=== PATIENT | female | born 1960 | race African-American/Black ===

== ENCOUNTER 2020-02-27 13:45 | Inpatient (IN) | payer OTHER ==
--- NOTE | 2020-02-27 13:51 | BHS.RME ---
Substance Use & Tx History - Substance Use History Alcohol Substance amount: 1 pint rum Frequency of use: Daily Substance route: Oral Date of Last Use: 02/26/20 (started age 10) Nicotine Substance amount: 1 pack Frequency of use: Daily Substance route: Smoking Date of Last Use: 02/27/20 (started age 17) CIWA Nausea/Vomitin-Mild Nausea/No Vomiting Muscle Tremors: 2 Anxiety: 4-Mod. Anxious/Guarded Agitation: 4-Moderately Restless Paroxysmal Sweats: 1-Minimal Palms Moist Orientation: 0-Oriented Tacttile Disturbances: 0-None Auditory Disturbances: 0-None Visual Disturbances: 0-None Headache: 0-None Present CIWA-Ar Total Score: 12
--- NOTE | 2020-02-27 15:20 | HP ---
CIWA Score Nausea/Vomitin-Mild Nausea/No Vomiting Muscle Tremors: 2 Anxiety: 4-Mod. Anxious/Guarded Agitation: 4-Moderately Restless Paroxysmal Sweats: 1-Minimal Palms Moist Orientation: 0-Oriented Tacttile Disturbances: 0-None Auditory Disturbances: 0-None Visual Disturbances: 0-None Headache: 0-None Present CIWA-Ar Total Score: 12 - Admission Criteria [facility]ASAS Guidelines: Admission for Medically Managed Detox: Requires at least one of the followin. CIWA greater than 12 2. Seizures within the past 24 hours 3. Delirium tremens within the past 24 hours 4. Hallucinations within the past 24 hours 5. Acute intervention needed for co occurring medical disorder 6. Acute intervention needed for co occurring psychiatric disorder 7. Severe withdrawal that cannot be handled at a lower level of care (continued vomiting, continued diarrhea, abnormal vital signs) requiring intravenous medication and/or fluids 8. Admitting History and Physical - Admission Chief Complaint: Ms. Salazar is a 59 yo woman who presents to [facility] requesting admission to detox for alcohol use disorder. History of Present Illness: Ms. Salazar is a 59 yo woman who presents to [facility] requesting admission to detox for alcohol use disorder. This is her first visit to [facility]. PMH: Asthma, COPD, HIV, h/o thrombophlebitis on Plavix, arthritis, HTN, HLD, CVA 2016 PSH: bilateral arms Psych: h/o depression , no meds, SA at age 51, no current SI SOC: lives in her own apartment Legal: none Substance Use History Alcohol Substance amount: 1 pint rum Frequency of use: Daily Substance route: Oral Date of Last Use: 02/26/20 (started age 10) No hx of seizures or blackouts Admits to [facility] [employer] [facility] [employer] Nicotine Substance amount: 1 pack Frequency of use: Daily Substance route: Smoking Date of Last Use: 02/27/20 (started age 17) History Source: Patient Limitations to Obtaining History: No Limitations Admission ROS [facility] Allergies/Adverse Reactions: Allergies Allergy/AdvReac Type Severity Reaction Status Date / Time aspirin Allergy Verified 02/27/20 15:23 ibuprofen AdvReac Nausea Verified 02/27/20 15:25 Exam Limitations: No Limitations - Ebola screening Have you traveled outside of the country in the last 21 days: No Have you been sick,other than usual withdrawal symptoms: No Do you have a fever: No - Review of Systems Constitutional: No Symptoms Reported EENT: reports: No Symptoms Reported Respiratory: reports: SOB with Exertion Cardiac: reports: No Symptoms Reported GI: reports: Nausea : reports: No Symptoms Reported Musculoskeletal: reports: No Symptoms Reported Integumentary: reports: Rash (recent, under breasts, treated with cortisone cream, now resolved) Neuro: reports: Headache (hx of migraine, hx of stroke when using cocaine 2017, leg and bilateral arm weakness, no residual sx) Endocrine: reports: No Symptoms Reported Hematology: reports: Blood Clots Psychiatric: reports: Depressed Patient History - Smoking Cessation Smoking history: Current every day smoker Have you smoked in the past 12 months: Yes Aproximately how many cigarettes per day: 20 Hx Chewing Tobacco Use: No Initiated information on smoking cessation: Yes 'Breaking Loose' booklet given: 02/27/20 Admission Physical Exam [facility] - Vital Signs Vital Signs: 145/106, 69, 12, 95.1, sat 98% UDS: BEBE - Physical General Appearance: Yes: No Apparent Distress, Nourished, Appropriately Dressed HEENTM: Yes: EOMI, Hearing grossly Normal, Normocephalic, Normal Voice Respiratory: Yes: Lungs Clear, Normal Breath Sounds, No Respiratory Distress, No Accessory Muscle Use Neck: Yes: Within Normal Limits, Supple Breast: Yes: Within Normal Limits Cardiology: Yes: Regular Rhythm, Regular Rate Abdominal: Yes: Non Tender, Soft, Decreased BS, Protuberent Genitourinary: Yes: Other (deferred) Back: Yes: Normal Inspection Musculoskeletal: Yes: Gait Steady Extremities: Yes: Non-Tender, Other (hx of surgery dorsal and ventral forearm, left ventral forearm, hx of right arm trauma and left arm DVT) Neurological: Yes: Alert, Normal Response Integumentary: Yes: Within Normal Limits, Normal Color, Dry, Warm - Diagnostic (1) Alcohol abuse with withdrawal, uncomplicated Current Visit: Yes Status: Acute (2) Cocaine dependence Current Visit: Yes Status: Acute Qualifiers: Substance use status: uncomplicated Qualified Code(s): F14.20 - Cocaine dependence, uncomplicated (3) Nicotine dependence Current Visit: Yes Status: Acute Qualifiers: Nicotine product type: cigarettes Substance use status: uncomplicated Qualified Code(s): F17.210 - Nicotine dependence, cigarettes, uncomplicated (4) Asthma Current Visit: Yes Status: Chronic (5) COPD (chronic obstructive pulmonary disease) Current Visit: Yes Status: Chronic (6) HIV (human immunodeficiency virus infection) Current Visit: Yes Status: Chronic (7) DVT (deep venous thrombosis) Current Visit: Yes Status: Chronic (8) Arthritis Current Visit: Yes Status: Chronic (9) HTN (hypertension) Current Visit: Yes Status: Chronic (10) HLD (hyperlipidemia) Current Visit: Yes Status: Chronic (11) Depression Current Visit: Yes Status: Chronic Cleared for Admission S - Detox or Rehab [facility] Level of Care: Medically Managed Detox Regimen/Protocol: Lib[facility] Inpatient Rehab Admission - Rehab Decision to Admit Inpatient rehab admission?: No
[2020-02-27] MEDS ORDERED: MAGNESIUM CITRATE 300 ML BOTTLE PO PRN (15:25)
[2020-02-27] MEDS ORDERED: MENTHOL/PHENOL 1 EACH UD MM PRN (15:25)
[2020-02-27] MEDS ORDERED: MAGNESIUM HYDROX 2400MG/30ML ORAL SUSPENSION 30 ML CUP PO PRN (15:25)
[2020-02-27] MEDS ORDERED: ACETAMINOPHEN 325 MG TABLET (FP) PO PRN (15:25)
[2020-02-27] MEDS ORDERED: NICOTINE POLACRILEX 2 MG GUM BUC PRN (15:25)
[2020-02-27] MEDS ORDERED: IBUPROFEN 400 MG TABLET (FP) PO PRN (15:25)
[2020-02-27] MEDS ORDERED: ONDANSETRON *ODT* 4 MG TABLET SL PRN (15:25)
[2020-02-27] MEDS ORDERED: BISMUTH SUBSALICYLATE 524 MG/30 ML UD PO PRN (15:25)
--- OUTSIDE RECORDS SUMMARY | 2020-02-27 15:45 | XMS ---
:1960 Author Organization [facility] Support Name Relationship Address Phone UE Unavailable Unavailable Unavailable MARLA HOYT [employer]NER [address] [address] denys gaines Unavailable Unavailable Unavailable Re-disclosure Warning The records that you are about to access may contain information from federally- assisted alcohol or drug abuse programs. If such information is present, then the following federally mandated warning applies: This information has been disclosed to you from records protected by federal confidentiality rules (42 CFR part 2). The federal rules prohibit you from making any further disclosure of this information unless further disclosure is expressly permitted by the written consent of the person to whom it pertains or as otherwise permitted by 42 CFR part 2. A general authorization for the release of medical or other information is NOT sufficient for this purpose. The Federal rules restrict any use of the information to criminally investigate or prosecute any alcohol or drug abuse patient.The records that you are about to access may contain highly sensitive health information, the redisclosure of which is protected by Article 27-F of the [facility] Public Health law. If you continue you may haveaccess to information: Regarding HIV / AIDS; Provided by facilities licensed or operated by the [facility] Office of Mental Health; or Provided by the [facility] Office for People With Developmental Disabilities. If such information is present, then the following [facility] mandated warning applies: This information has been disclosed to you from confidential records which are protected by state law. State law prohibits you from making any further disclosure of this information without the specific written consent of the person to whom it pertains, or as otherwise permitted by law. Any unauthorized further disclosure in violation of state law may result in a fine or usp sentence or both. A general authorization for the release of medical or other information is NOT sufficient authorization for further disclosure. Encounters Encounter Providers Location Date Indications Data Source(s ) Outpatient [facility] 02/25/2019 eCW3 ([facility] 12:00:00 AM Health Care) EDT - 02/25/2019 12:00:00 AM EDT Outpatient [facility] 01/28/2019 eCW3 ([facility]28 12:00:00 AM Health Care) EDT - 01/28/2019 12:00:00 AM EDT Medications Medication Brand Start Product Dose Route Administrative Pharmacy [facility] Indications Reaction Description Data Name Date Form Instructions Instructions Source(s) Biktarvy Biktar .0 active Biktarvy e CW3 50-200-25 vy 2020 {tabl 50-200-25 MG ( [place] MG 50-200 12:00: et} [place] -25 MG 00 AM Health EDT Care) Indomethaci Indome .0 active Indomet hacin eCW3 n 25 MG thacin 2019 {caps 25 MG ([place] Oral 25 MG 12:00: ule_w [place] Capsule 00 AM ith_f Health EDT ood_o Care) r_mil k} Zithromax Zithro .0 active Zithromax eCW3 Tri-Zackary 500 max 2020 {tabl Tri-Zackary 500 ([place] MG Tri-Pa 12:00: et} MG [place] k 500 00 AM Health MG EDT Care) Zithromax Zithro .0 active Zithromax eCW3 Tri-Zackary 500 max 2020 {tabl Tri-Zackary 500 ([place] MG Tri-Pa 12:00: et} MG [place] k 500 00 AM Health MG EDT Care) Zithromax Zithro .0 active Zithromax eCW3 Tri-Zackary 500 max 2020 {tabl Tri-Zackary 500 ([place] MG Tri-Pa 12:00: et} MG [place] k 500 00 AM Health MG EDT Care) Zithromax Zithro .0 active Zithromax eCW3 Tri-Zackary 500 max 2020 {tabl Tri-Zackary 500 ([place] MG Tri-Pa 12:00: et} MG [place] k 500 00 AM Health MG EDT Care) Biktarvy Biktar .0 active Biktarvy e CW3 50-200-25 vy 2020 {tabl 50-200-25 MG ( [place] MG 50-200 12:00: et} [place] -25 MG 00 AM Health EDT Care) Biktarvy Biktar .0 active Biktarvy e CW3 50-200-25 vy 2020 {tabl 50-200-25 MG ( [place] MG 50-200 12:00: et} [place] -25 MG 00 AM Health EDT Care) Syringe UNK 0530/ active Syringe eCW3 (Disposable 2020 (Disposable) ([place] ) 1 ML 12:00: 1 ML [facility] 00 AM Health EDT Care) Syringe UNK 0530/ active Syringe eCW3 (Disposable 2020 (Disposable) ([place] ) 1 ML 12:00: 1 ML [place] 00 AM Health EDT Care) Syringe UNK 0530/ active Syringe eCW3 (Disposable 2020 (Disposable) ([place] ) 1 ML 12:00: 1 ML [place] 00 AM Health EDT Care) Syringe UNK 0530/ active Syringe eCW3 (Disposable 2020 (Disposable) ([place] ) 1 ML 12:00: 1 ML [place] 00 AM Health EDT Care) Biktarvy Biktar .0 active Biktarvy e CW3 50-200-25 vy 2020 {tabl 50-200-25 MG ( [place] MG 50-200 12:00: et} [place] -25 MG 00 AM Health EDT Care) Biktarvy Biktar .0 active Biktarvy e CW3 50-200-25 vy 2020 {tabl 50-200-25 MG ( [place] MG 50-200 12:00: et} [place] -25 MG 00 AM Health EDT Care) Biktarvy Biktar .0 active Biktarvy e CW3 50-200-25 vy 2020 {tabl 50-200-25 MG ( [place] MG 50-200 12:00: et} [place] -25 MG 00 AM Health EDT Care) Biktarvy Biktar .0 active Biktarvy e CW3 50-200-25 vy 2020 {tabl 50-200-25 MG ( [place] MG 50-200 12:00: et} [place] -25 MG 00 AM Health EDT Care) Clotrimazol Clotri .0 active Clotrim azole eCW3 e - mazole 2020 {appl - ([place] - 12:00: icati [place] 00 AM on_at Health EDT _bedt Care) denisse} Clotrimazol Clotri .0 active Clotrim azole eCW3 e - mazole 2020 {appl - ([place] - 12:00: icati [place] 00 AM on_at Health EDT _bedt Care) denisse} Ketoconazol Ketoco .0 active Ketocon azole eCW3 e 20 MG/ML nazole 2020 {appl 2 % ([place] Topical 2 % 12:00: icati [place] Cream 00 AM on} Health Ketoconazol EDT Care) e 2 % Clotrimazol Clotri .0 active Clotrim azole eCW3 e 10 MG/ML mazole 2020 {appl 1 % ([place] [facility] Topical 1 % 12:00: icati [place] Solution 00 AM on} Health Clotrimazol EDT Care) e 1 % Clotrimazol Clotri .0 active Clotrim azole eCW3 e 10 MG/ML mazole 2020 {appl 1 % ([place] [facility] Topical 1 % 12:00: icati [place] Solution 00 AM on} Health Clotrimazol EDT Care) e 1 % Ketoconazol Ketoco .0 active Ketocon azole eCW3 e 20 MG/ML nazole 2020 {appl 2 % ([place] Topical 2 % 12:00: icati [place] Cream 00 AM on} Health Ketoconazol EDT Care) e 2 % Ketoconazol Ketoco .0 active Ketocon azole eCW3 e 20 MG/ML nazole 2020 {appl 2 % ([place] Topical 2 % 12:00: icati [place] Cream 00 AM on} Health Ketoconazol EDT Care) e 2 % Clotrimazol Clotri .0 active Clotrim azole eCW3 e 10 MG/ML mazole 2020 {appl 1 % ([place] Topical 1 % 12:00: icati [place] Solution 00 AM on} Health Clotrimazol EDT Care) e 1 % Clotrimazol Clotri .0 active Clotrim azole eCW3 e 10 MG/ML mazole 2020 {appl 1 % ([place] Topical 1 % 12:00: icati [place] Solution 00 AM on} Health Clotrimazol EDT Care) e 1 % Ketoconazol Ketoco .0 active Ketocon azole eCW3 e 20 MG/ML nazole 2020 {appl 2 % ([place] [facility] Topical 2 % 12:00: icati [place] Cream 00 AM on} Health Ketoconazol EDT Care) e 2 % Clotrimazol Clotri .0 active Clotrim azole eCW3 e - mazole 2020 {appl - ([place] - 12:00: icati [place] 00 AM on_at Health EDT _bedt Care) denisse} Clotrimazol Clotri .0 active Clotrim azole eCW3 e 10 MG/ML mazole 2020 {appl 1 % ([place] Topical 1 % 12:00: icati [place] Solution 00 AM on} Health Clotrimazol EDT Care) e 1 % Ketoconazol Ketoco .0 active Ketocon azole eCW3 e 20 MG/ML nazole 2020 {appl 2 % ([place] Topical 2 % 12:00: icati [place] Cream 00 AM on} Health Ketoconazol EDT Care) e 2 % Clotrimazol Clotri .0 active Clotrim azole eCW3 e - mazole 2020 {appl - ([place] - 12:00: icati [place] 00 AM on_at Health EDT _bedt Care) denisse} Clotrimazol Clotri .0 active Clotrim azole eCW3 e - mazole 2020 {appl - ([place] - 12:00: icati [place] 00 AM on_at Health EDT _bedt Care) denisse} quetiapine Seroqu .0 active Seroquel 25 eCW3 25 MG Oral el 25 2020 {tabl MG ([place] Tablet MG 12:00: et_at [place] [Seroquel] 00 AM _bedt Health Seroquel 25 EDT denisse} Care) MG quetiapine Seroqu .0 active Seroquel 25 eCW3 25 MG Oral el 2019 {tabl MG ([place] Tablet MG 12:00: et_at [place] [Seroquel] 00 AM _bedt Health Seroquel 25 EDT denisse} Care) MG quetiapine Seroqu .0 active Seroquel 25 eCW3 25 MG Oral el 2019 {tabl MG ([place] Tablet MG 12:00: et_at [place] [Seroquel] 00 AM _bedt Health Seroquel 25 EDT denisse} Care) MG quetiapine Seroqu .0 active Seroquel 25 eCW3 25 MG Oral el 2019 {tabl MG ([place] Tablet MG 12:00: et_at [place] [Seroquel] 00 AM _bedt Health Seroquel 25 EDT denisse} Care) MG quetiapine Seroqu .0 active Seroquel 25 eCW3 25 MG Oral el 2019 {tabl MG ([place] Tablet MG 12:00: et_at [place] [Seroquel] 00 AM _bedt Health Seroquel 25 EDT denisse} Care) MG quetiapine Seroqu .0 active Seroquel 25 eCW3 25 MG Oral el 2019 {tabl MG ([place] Tablet MG 12:00: et_at [place] [Seroquel] 00 AM _bedt Health Seroquel 25 EDT denisse} Care) MG Biktarvy Biktar .0 active Leonor araujo CW3 50-200-25 vy 2019 {tabl 50-200-25 MG ( [place] MG 50-200 12:00: et} [place] -25 MG 00 AM Health EDT Care) Biktarvy Biktar .0 active Garlandktgrey araujo CW3 50-200-25 vy 2019 {tabl 50-200-25 MG ( [place] MG 50-200 12:00: et} [place] -25 MG 00 AM Health EDT Care) Biktarvy Biktar .0 active Biktarvy e CW3 50-200-25 vy 2020 {tabl 50-200-25 MG ( [place] MG 50-200 12:00: et} [place] -25 MG 00 AM Health EDT Care) Biktarvy Biktar .0 active Biktarvy e CW3 50-200-25 vy 2020 {tabl 50-200-25 MG ( [place] MG 50-200 12:00: et} [place] -25 MG 00 AM Health EDT Care) Biktarvy Biktar .0 active Biktarvy e CW3 50-200-25 vy 2020 {tabl 50-200-25 MG ( [place] MG 50-200 12:00: et} [place] -25 MG 00 AM Health EDT Care) Biktarvy Biktar .0 active Biktarvy e CW3 50-200-25 vy 2020 {tabl 50-200-25 MG ( [place] MG 50-200 12:00: et} [place] -25 MG 00 AM Health EDT Care) Biktarvy Biktar .0 active Biktarvy e CW3 50-200-25 vy 2020 {tabl 50-200-25 MG ( [place] MG 50-200 12:00: et} [place] -25 MG 00 AM Health EDT Care) Biktarvy Biktar .0 active Biktarvy e CW3 50-200-25 vy 2020 {tabl 50-200-25 MG ( [place] MG 50-200 12:00: et} [place] -25 MG 00 AM Health EDT Care) Biktarvy Biktar .0 active Biktarvy e CW3 50-200-25 vy 2020 {tabl 50-200-25 MG ( [place] MG 50-200 12:00: et} [place] -25 MG 00 AM Health EDT Care) Biktarvy Biktar 03/18/ 1.0 active Biktarvy e CW3 50-200-25 vy 2020 {tabl 50-200-25 MG ( [place] MG 50-200 12:00: et} [place] -25 MG 00 AM Health EDT Care) Vitamin B Cyanoc .0 active Cyanocoba cortez eCW3 12 1 MG/ML obalam 2019 {ml} in 1000 ([facility] Injectable in 12:00: MCG/ML [place] Solution 1000 00 AM Health Cyanocobala MCG/ML EST Care) min 1000 MCG/ML Diphenhydra Diphen 2.0 active Diphenh ydrAM eCW3 mine hydrAM 2018 {caps INE HCl 25 ([place] Hydrochlori INE 12:00: ule_a MG [place] de 25 MG HCl 25 00 AM t_bed Health Oral MG EST time_ Care) Capsule as_ne DiphenhydrA eded} MINE HCl 25 MG Lisinopril Lisino .0 active Lisinopr il 5 eCW3 5 MG Oral pril 5 2018 {tabl MG ([place] Tablet MG 12:00: et} [facility] 00 AM Health EST Care) Vitamin B Cyanoc .0 active Cyanocoba cortez eCW3 12 1 MG/ML obalam 2019 {ml} in 1000 ([facility] Injectable in 12:00: MCG/ML [place] Solution 1000 00 AM Health Cyanocobala MCG/ML EST Care) min 1000 MCG/ML Vitamin B Cyanoc .0 active Cyanocoba cortez eCW3 12 1 MG/ML obalam 2019 {ml} in 1000 ([place] Injectable in 12:00: MCG/ML [place] Solution 1000 00 AM Health Cyanocobala MCG/ML EST Care) min 1000 MCG/ML Vitamin B Cyanoc .0 active Cyanocoba cortez eCW3 12 1 MG/ML obalam 2019 {ml} in 1000 ([facility] Injectable in 12:00: MCG/ML [facility] Solution 1000 00 AM Health Cyanocobala MCG/ML EST Care) min 1000 MCG/ML Lisinopril Lisino .0 active Lisinopr il 5 eCW3 5 MG Oral pril 5 2018 {tabl MG ([place] Tablet MG 12:00: et} [facility] 00 AM Health EST Care) clopidogrel Plavix .0 active Plavix 75 MG eCW3 75 MG Oral 75 MG 2019 {tabl ([place] Tablet 12:00: et} [place] [Plavix] 00 AM Health Plavix 75 EST Care) MG clopidogrel Plavix .0 active Plavix 75 MG eCW3 75 MG Oral 75 MG 2018 {tabl ([place] Tablet 12:00: et} [place] [Plavix] 00 AM Health Plavix 75 EST Care) MG Lisinopril Lisino .0 active Lisinopr il 5 eCW3 5 MG Oral pril 5 2018 {tabl MG ([place] Tablet MG 12:00: et} [place] 00 AM Health EST Care) Vitamin B Cyanoc .0 active Cyanocoba cortez eCW3 12 1 MG/ML obalam 2019 {ml} in 1000 ([facility] Injectable in 12:00: MCG/ML [facility] Solution 1000 00 AM Health Cyanocobala MCG/ML EST Care) min 1000 MCG/ML clopidogrel Plavix .0 active Plavix 75 MG eCW3 75 MG Oral 75 MG 2018 {tabl ([place] Tablet 12:00: et} [place] [Plavix] 00 AM Health Plavix 75 EST Care) MG Diphenhydra Diphen 2.0 active Diphenh ydrAM eCW3 mine hydrAM 2018 {caps INE HCl 25 ([place] Hydrochlori INE 12:00: ule_a MG [place] de 25 MG HCl 25 00 AM t_bed Health Oral MG EST time_ Care) Capsule as_ne DiphenhydrA eded} MINE HCl 25 MG Lisinopril Lisino .0 active Lisinopr il 5 eCW3 5 MG Oral pril 5 2018 {tabl MG ([place] Tablet MG 12:00: et} [place] 00 AM Health EST Care) Lisinopril Lisino .0 active Lisinopr il 5 eCW3 5 MG Oral pril 5 2018 {tabl MG ([place] Tablet MG 12:00: et} [facility] 00 AM Health EST Care) Lisinopril Lisino .0 active Lisinopr il 5 eCW3 5 MG Oral pril 5 2018 {tabl MG ([place] Tablet MG 12:00: et} [place] 00 AM Health EST Care) clopidogrel Plavix .0 active Plavix 75 MG eCW3 75 MG Oral 75 MG 2019 {tabl ([place] Tablet 12:00: et} [place] [Plavix] 00 AM Health Plavix 75 EST Care) MG Diphenhydra Diphen 2.[address] [facility] 2018 {caps INE HCl 25 ([place] Hydrochlori INE 12:00: ule_a MG [place] de 25 MG HCl 25 00 AM t_bed Health Oral MG EST time_ Care) Capsule as_ne DiphenhydrA eded} MINE HCl 25 MG clopidogrel Plavix .0 active Plavix 75 MG eCW3 75 MG Oral 75 MG 2018 {tabl ([place] Tablet 12:00: et} [place] [Plavix] 00 AM Health Plavix 75 EST Care) MG Diphenhydra Diphen 2.[address] eCW[address] [facility] 2018 {caps INE HCl 25 ([place] Hydrochlori INE 12:00: ule_a MG [place] de 25 MG HCl 25 00 AM t_bed Health Oral MG EST time_ Care) Capsule as_ne DiphenhydrA eded} MINE HCl 25 MG Diphenhydra Diphen .0 active [address] ydrAM eCW[address] [facility] 2018 {caps INE HCl 25 ([place] Hydrochlori INE 12:00: ule_a MG [place] de 25 MG HCl 25 00 AM t_bed Health Oral MG EST time_ Care) Capsule as_ne DiphenhydrA eded} MINE HCl 25 MG clopidogrel Plavix .0 active Plavix 75 MG eCW3 75 MG Oral 75 MG 2019 {tabl ([place] Tablet 12:00: et} [place] [Plavix] 00 AM Health Plavix 75 EST Care) MG Diphenhydra Diphen 2.[address] [facility] 2018 {caps INE HCl 25 ([place] Hydrochlori INE 12:00: ule_a MG [place] de 25 MG HCl 25 00 AM t_bed Health Oral MG EST time_ Care) Capsule as_ne DiphenhydrA eded} MINE HCl 25 MG Vitamin B Cyanoc .0 active Cyanocoba cortez eCW3 12 1 MG/ML obalam 2019 {ml} in 1000 ([place] Injectable in 12:00: MCG/ML [facility] Solution 1000 00 AM Health Cyanocobala MCG/ML EST Care) min 1000 MCG/ML topiramate Topira 1.0 active Topirama te eCW3 25 MG Oral mate 2019 {tabl 25 MG ([place] Tablet 25 MG 12:00: et} [place] Topiramate 00 AM Health 25 MG EDT Care) topiramate Topira 1.0 active Topirama te eCW3 25 MG Oral mate 2019 {tabl 25 MG ([place] Tablet 25 MG 12:00: et} [place] Topiramate 00 AM Health 25 MG EDT Care) topiramate Topira 1.0 active Topirama te eCW3 25 MG Oral mate 2019 {tabl 25 MG ([place] Tablet 25 MG 12:00: et} [place] Topiramate 00 AM Health 25 MG EDT Care) topiramate Topira .0 active Topirama te eCW3 25 MG Oral mate 2019 {tabl 25 MG ([place] Tablet 25 MG 12:00: et} [place] Topiramate 00 AM Health 25 MG EDT Care) topiramate Topira 1.0 active Topirama te eCW3 25 MG Oral mate 2019 {tabl 25 MG ([place] Tablet 25 MG 12:00: et} [place] Topiramate 00 AM Health 25 MG EDT Care) topiramate Topira 1.0 active Topirama te eCW3 25 MG Oral mate 2019 {tabl 25 MG ([place] Tablet 25 MG 12:00: et} [place] Topiramate 00 AM Health 25 MG EDT Care) Biktarvy Biktar .0 active Biktarvy e CW3 50-200-25 vy 2018 {tabl 50-200-25 MG ( [place] MG 50-200 12:00: et} [place] -25 MG 00 AM Health EDT Care) Biktarvy Biktar .0 active Biktarvy e CW3 50-200-25 vy 2018 {tabl 50-200-25 MG ( [place] MG 50-200 12:00: et} [place] -25 MG 00 AM Health EDT Care) Biktarvy Biktar .0 active Biktarvy e CW3 50-200-25 vy 2019 {tabl 50-200-25 MG ( [place] MG 50-200 12:00: et} [place] -25 MG 00 AM Health EDT Care) Biktarvy Biktar .0 active Biktarvy e CW3 50-200-25 vy 2019 {tabl 50-200-25 MG ( [place] MG 50-200 12:00: et} [place] -25 MG 00 AM Health EDT Care) Docusate Colace .0 active Colace 100 eCW3 Sodium 100 100 MG 2018 {caps MG ([place] MG Oral 12:00: ule_a [place] Capsule 00 AM s_nee Health [Colace] EDT ded} Care) Colace 100 MG Docusate Colace .0 active Colace 100 eCW3 Sodium 100 100 MG 2018 {caps MG ([place] MG Oral 12:00: ule_a [place] Capsule 00 AM s_nee Health [Colace] EDT ded} Care) Colace 100 MG Maalox Max Maalox .0 active Maalox M ax eCW3 400-400-40 Max 2018 {ml_a 400-400-40 ([place] MG/5ML 400-40 12:00: s_nee MG/5ML [place] 0-40 00 AM ded} Health MG/5ML EDT Care) Docusate Colace .0 active Colace 100 eCW3 Sodium 100 100 MG 2018 {caps MG ([place] MG Oral 12:00: ule_a [place] Capsule 00 AM s_nee Health [Colace] EDT ded} Care) Colace 100 MG Docusate Colace .0 active Colace 100 eCW3 Sodium 100 100 MG 2018 {caps MG ([place] MG Oral 12:00: ule_a [place] Capsule 00 AM s_nee Health [Colace] EDT ded} Care) Colace 100 MG Docusate Colace .0 active Colace 100 eCW3 Sodium 100 100 MG 2018 {caps MG ([place] MG Oral 12:00: ule_a [place] Capsule 00 AM s_nee Health [Colace] EDT ded} Care) Colace 100 MG Docusate Colace .0 active Colace 100 eCW3 Sodium 100 100 MG 2018 {caps MG ([place] MG Oral 12:00: ule_a [place] Capsule 00 AM s_nee Health [Colace] EDT ded} Care) Colace 100 MG Docusate Colace .0 active Colace 100 eCW3 Sodium 100 100 MG 2018 {caps MG ([place] MG Oral 12:00: ule_a [place] Capsule 00 AM s_nee Health [Colace] EDT ded} Care) Colace 100 MG Acetaminoph Acetam .0 active Acetami nophe eCW3 en 500 MG inophe 2018 {tabl n 500 MG ([facility] Oral Tablet n 500 12:00: et_as [facility] r MG 00 AM _need Health EDT ed} Care) Acetaminoph Acetam .0 active Acetami nophe eCW3 en 500 MG inophe 2018 {tabl n 500 MG ([facility] Oral Tablet n 500 12:00: et_as [facility] MG 00 AM _need Health EDT ed} Care) Ketoconazol Ketoco .0 active Ketocon azole eCW3 e 20 MG/ML nazole 2018 {appl 2 % ([place] Topical 2 % 12:00: icati [place] Cream 00 AM on_to Health Ketoconazol EDT _affe Care) e 2 % cted_ area} Clotrimazol Clotri .0 active Clotrim azole eCW3 e 10 MG/ML mazole 2018 {appl 1 % ([place] Topical 1 % 12:00: icati [place] Solution 00 AM on_to Health Clotrimazol EDT _affe Care) e 1 % cted_ area} Clotrimazol Clotri 08/10/ active Clotrim azole eCW3 e - mazole 2018 - ([place] - 12:00: [place] 00 AM Health EDT Care) Clotrimazol Clotri 08/10/ active Clotrim azole eCW3 e - mazole 2019 - ([place] - 12:00: [place] 00 AM Health EDT Care) Clotrimazol Clotri .0 active Clotrim azole eCW3 e 10 MG/ML mazole 2018 {appl 1 % ([place] Topical 1 % 12:00: icati [place] Solution 00 AM on_to Health Clotrimazol EDT _affe Care) e 1 % cted_ area} Ketoconazol Ketoco .0 active Ketocon azole eCW3 e 20 MG/ML nazole 2018 {appl 2 % ([place] Topical 2 % 12:00: icati [place] Cream 00 AM on_to Health Ketoconazol EDT _affe Care) e 2 % cted_ area} Maalox Max Maalox .0 active Maalox M ax eCW3 400-400-40 Max 2017 {ml_a 400-400-40 ([place] [facility] MG/5ML 400-40 12:00: s_nee MG/5ML [place] 0-40 00 AM ded} Health MG/5ML EST Care) Maalox Max Maalox .0 active Maalox M ax eCW3 400-400-40 Max 2017 {ml_a 400-400-40 ([place] [facility] MG/5ML 400-40 12:00: s_nee MG/5ML [place] 0-40 00 AM ded} Health MG/5ML EST Care) Lisinopril LISINO 1.0 active LISINOPRIL eCW3 10 MG Oral PRIL {tabl 10 mg ([place] Tablet 10 mg et} [facility] LISINOPRIL Health 10 mg Care) Lisinopril LISINO 1.0 active LISINOPRIL eCW3 10 MG Oral PRIL {tabl 10 mg ([place] Tablet 10 mg et} [facility] LISINOPRIL Health 10 mg Care) Insurance Providers Payer name Policy type Policy ID Covered Covered alliance party's Policy P eugenia / Coverage alliance party ID relationship to Lorenz Inf ormation type lorenz -BEACON [id number] SP [id number] [employer] Problems, Conditions, and Diagnoses Code Display Name Description Problem Type Effective Data Sour ce(s) Dates J44.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 ([place] obstructive obstructive 12:00:00 AM [facility] pulmonary disease pulmonary disease EDT Care) with acute with acute exacerbation exacerbation 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, Migraine aura, Problem 12/23/2019 eCW3 ( [place] persistent, persistent, 12[facility]00:[facility] with [facility]ractable, with EDT Care) status migrainosus status migrainosus F19.10 Substance abuse Substance abuse Problem 11/02/2019 eCW3 ([place] 12:00:00 AM [facility] EDT Care) J30.2 Seasonal allergy Seasonal allergies Problem 10/14/2019 eCW3 ([place] 12:00:00 AM [facility] EDT Care) J30.2 Seasonal allergy Seasonal allergies Problem 10/14/2019 eCW3 ([place] 12:00:00 AM [facility] EDT Care) R53.82 Chronic fatigue Chronic fatigue Problem 05/13/2019 eCW3 ([place] 12:00:00 AM [facility] EST Care) R26.89 Balance problem Balance problem Problem 05/13/2019 eCW3 ([place] 12:00:00 AM [facility] EST Care) R53.82 Chronic fatigue Chronic fatigue Problem 05/13/2019 eCW3 ([place] 12:00:00 AM [facility] EST Care) R26.89 Balance problem Balance problem Problem 05/13/2019 eCW3 ([place] 12:00:00 AM [facility] EST Care) R58 Ecchymosis Ecchymosis Problem 02/25/2019 eCW3 ([place] 12:00:00 AM [facility] EDT Care) R58 Ecchymosis Ecchymosis Problem 02/25/2019 eCW3 ([place] 12:00:00 AM [facility] EDT Care) K59.01 Slow transit Slow transit Problem 01/07/2019 eCW3 ([place] [place] constipation constipation 12:00:00 AM [facility] EDT Care) K59.01 Slow transit Slow transit Problem 01/07/2019 eCW3 ([facility] constipation constipation 12:00:00 AM [facility] EDT Care) K59.01 Slow transit Slow transit Problem 01/07/2019 eCW3 ([facility] constipation constipation 12:00:00 AM [facility] EDT Care) Social History Code Duration Value Status Description Data Source(s ) Smoking 12/23/2019 12:00:00 Former Smoker completed Former Smoker eCW3 ([facility]) Smoking 12/23/2019 12:00:00 Former Smoker completed Former Smoker eCW3 ([facility]) Smoking 10/14/2019 12:00:00 Former Smoker completed Former Smoker eCW3 ([facility]) Smoking 10/14/2019 12:00:00 Former Smoker completed Former Smoker eCW3 ([facility]) Vital Signs ID Date Data Source UNK Name Value Range Interpretation Code Description Data Source(s) Diastolic blood 68 mm[Hg] 68 mm[Hg] eCW3 ([facility]) Systolic blood 101 mm[Hg] 101 mm[Hg] eCW3 ([facility]) Body temperature 98.3 [degF] 98.3 [degF] eCW3 ( [facility]) Heart rate 16 /min 16 /min eCW3 ([facility]) Body height [in_i] eCW3 ([facility]) Diastolic blood 75 mm[Hg] 75 mm[Hg] eCW3 ([facility]) Systolic blood 126 mm[Hg] 126 mm[Hg] eCW3 ([facility]) Body temperature 98.3 [degF] 98.3 [degF] eCW3 ( [facility]) Heart rate 16 /min 16 /min eCW3 ([facility]) Body mass index 29.62 kg/m2 29.62 kg/m2 eCW3 ([facility] (BMI) [Ratio] [facility]) Body weight 178 [lb_av] 178 [lb_av] eCW3 ([facility]) Body height [in_i] eCW3 ([facility]) Patient Treatment Plan of Care Planned Activity Planned Date Details Description Data Source (s) Biktarvy 50-200-25 MG 01/09/2020 eCW3 ( [facility] 12:00:00 AM [facility]) Indomethacin 25 MG Oral 01/01/2020 eCW3 ([facility] Capsule 12:00:00 AM [facility]) Syringe (Disposable) 1 ML 10/14/2019 eC W3 ([facility] 12:00:00 AM [facility]) Syringe (Disposable) 1 ML 10/14/2019 eC W3 ([place] 12:00:00 AM [facility]) Biktarvy 50-200-25 MG 10/11/2019 eCW3 ( [facility] 12:00:00 AM [facility]) Clotrimazole 10 MG/ML 09/05/2019 eCW3 ( [place] [facility] 12:00:00 AM [facility]) Ketoconazole 20 MG/ML 09/05/2019 eCW3 ( [place] Topical Cream 12:00:00 AM [facility] ) Clotrimazole - 09/05/2019 eCW3 ([place] 12:00:00 AM [facility]) Clotrimazole 10 MG/ML 09/05/2019 eCW3 ( [place] [facility] 12:00:00 AM [facility]) Ketoconazole 20 MG/ML 09/05/2019 eCW3 ( [place] Topical Cream 12:00:00 AM [facility] ) Clotrimazole - 09/05/2019 eCW3 ([place] 12:00:00 AM [facility]) Biktarvy 50-200-25 MG 08/02/2019 eCW3 ( [facility] 12:00:00 AM [facility]) Biktarvy 50-200-25 MG 08/02/2019 eCW3 ( [place] 12:00:00 AM [facility]) Lisinopril 5 MG Oral Tablet 05/13/2019 eCW3 ([facility] 12:00:00 AM [facility]) Lisinopril 5 MG Oral Tablet 05/13/2019 eCW3 ([facility] 12:00:00 AM [facility]) Diphenhydramine 05/13/2019 eCW3 ([place] Hydrochloride 25 MG Oral 12:00:00 AM [facility]) Capsule clopidogrel 75 MG Oral 05/13/2019 eCW3 ([place] Tablet [Plavix] 12:00:00 AM [facility]) Vitamin B 12 1 MG/ML 05/13/2019 eCW3 ([place] Injectable [facility] 12:00:00 AM [facility]) Lisinopril 5 MG Oral Tablet 05/13/2019 eCW3 ([place] 12:00:00 AM [facility]) Diphenhydramine 05/13/2019 eCW3 ([place] Hydrochloride 25 MG Oral 12:00:00 AM [facility]) Capsule clopidogrel 75 MG Oral 05/13/2019 eCW3 ([place] Tablet [Plavix] 12:00:00 AM [facility]) Vitamin B 12 1 MG/ML 05/13/2019 eCW3 ([place] [facility] 12:00:00 AM [facility]) Lisinopril 5 MG Oral Tablet 05/13/2019 eCW3 ([place] 12:00:00 AM [facility]) topiramate 25 MG Oral 03/13/2019 eCW3 ( [place] Tablet 12:00:00 AM [facility]) Acetaminophen 500 MG Oral 11/19/2018 eC W3 ([place] Tablet 12:00:00 AM [facility])
[2020-02-27 15:46] VITALS: BMI 31.8
[2020-02-27 17:13] LABS: ALBUMIN 3.8 g/dl (3.4-5.0); BILIRUBIN,TOTAL 0.7 mg/dL (0.2-1); BLOOD UREA NITROGEN 21.3 mg/dL (7-18); CREATININE 1.2 mg/dL (0.55-1.3); POTASSIUM 3.8 mmol/L (3.5-5.1); TOT PROT 7.9 g/dl (6.4-8.2)
[2020-02-27 17:17] LABS: HEMATOCRIT 43.4 % (32.4-45.2); HEMOGLOBIN 14.8 GM/dL (10.7-15.3); MCH 31.1 pg (25.7-33.7); MCHC 34.1 g/dl (32.0-36.0); MEAN CELL VOLUME 91.3 fl (80-96); MEAN PLT VOLUME 9.7 fl (7.5-11.1); PLATELET COUNT 169 K/MM3 (134-434); RBC 4.75 M/mm3 (3.60-5.2); RDW 14.2 % (11.6-15.6); WHITE BLOOD COUNT 9.9 K/mm3 (4.0-10.0)
[2020-02-27] MEDS: chlordiazePOXIDE HCL 25 MG CAPSULE PO PRN ×2 (17:22→22:15)
[2020-02-27] MEDS: NICOTINE 21 MG/24 HOURS TOPICAL PATCH TD SCH (18:00)
[2020-02-27] MEDS: hydrOXYzine PAMOATE 25 MG CAPSULE (FP) PO SCH ×2 (18:01→22:18)
[2020-02-27] MEDS: chlordiazePOXIDE HCL 25 MG CAPSULE PO SCH ×2 (18:01→23:44)
[2020-02-27] MEDS: MELATONIN 5 MG TABLETS PO SCH (22:15)
[2020-02-27] MEDS: ATORVASTATIN CA 10 MG TABLET (FP) PO SCH (22:15)
[2020-02-27] MEDS: THIAMINE HCL 100 MG TABLET (FP) PO SCH (22:16)
--- NOTE | 2020-02-27 22:31 | PN ---
[facility] Progress Note Note: As per nurse, Ms. Jim, patient reports history of PPD positive. Vital Signs Temperature 97.3 F L 02/27/20 17:07 Pulse Rate 64 02/27/20 17:07 Respiratory Rate 18 02/27/20 17:07 Blood Pressure 136/78 02/27/20 17:07 O2 Sat by Pulse Oximetry (%) 98 02/27/20 17:07 Laboratory Last Values WBC 9.9 K/mm3 (4.0-10.0) 02/27/20 15:30 RBC 4.75 M/mm3 (3.60-5.2) 02/27/20 15:30 Hgb 14.8 GM/dL (10.7-15.3) 02/27/20 15:30 Hct 43.4 % (32.4-45.2) 02/27/20 15:30 MCV 91.3 fl (80-96) 02/27/20 15:30 MCH 31.1 pg (25.7-33.7) 02/27/20 15:30 MCHC 34.1 g/dl (32.0-36.0) 02/27/20 15:30 RDW 14.2 % (11.6-15.6) 02/27/20 15:30 Plt Count 169 K/MM3 (134-434) 02/27/20 15:30 MPV 9.7 fl (7.5-11.1) 02/27/20 15:30 Sodium 142 mmol/L (136-145) 02/27/20 15:30 Potassium 3.8 mmol/L (3.5-5.1) 02/27/20 15:30 Chloride 109 mmol/L (98-107) H 02/27/20 15:30 Carbon Dioxide 29 mmol/L (21-32) 02/27/20 15:30 Anion Gap 4 MMOL/L (8-16) L 02/27/20 15:30 BUN 21.3 mg/dL (7-18) H 02/27/20 15:30 Creatinine 1.2 mg/dL (0.55-1.3) 02/27/20 15:30 Est GFR (CKD-EPI)AfAm 57.69 02/27/20 15:30 Est GFR (CKD-EPI)NonAf 49.78 10/13/20 15:30 Random Glucose 93 mg/dL (74-106) 02/27/20 15:30 Calcium 9.0 mg/dL (8.5-10.1) 02/27/20 15:30 Total Bilirubin 0.7 mg/dL (0.2-1) 02/27/20 15:30 AST 21 U/L (15-37) 02/27/20 15:30 ALT 20 U/L (13-61) 02/27/20 15:30 Alkaline Phosphatase 85 U/L (45-117) 02/27/20 15:30 Total Protein 7.9 g/dl (6.4-8.2) 02/27/20 15:30 Albumin 3.8 g/dl (3.4-5.0) 02/27/20 15:30 Syphilis Serology Reactive (NONREACTIVE) A* 02/27/20 15:30 Action: Chest X-ray ordered
[2020-02-28] MEDS: chlordiazePOXIDE HCL 25 MG CAPSULE PO SCH ×4 (05:27→22:23)
[2020-02-28] MEDS: hydrOXYzine PAMOATE 25 MG CAPSULE (FP) PO SCH (05:27)
[2020-02-28] MEDS: chlordiazePOXIDE HCL 25 MG CAPSULE PO PRN (05:27)
[2020-02-28] MEDS: ALBUTEROL SO4 HFA INHALER IH PRN (05:30)
[2020-02-28] MEDS: MAG HYDROX/AL HYDROX/SIMETH 30 ML UNIT-DOSE CUP PO PRN ×2 (07:34→18:15)
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
--- NOTE | 2020-02-28 09:54 | EKG ---
Test Reason : Blood Pressure : / mmHG Vent. Rate : 061 BPM Atrial Rate : 061 BPM P-R Int : 154 ms QRS Dur : 068 ms QT Int : 444 ms P-R-T Axes : 074 046 027 degrees QTc Int : 446 ms NORMAL SINUS RHYTHM NORMAL ECG NO PREVIOUS ECGS AVAILABLE Confirmed by MD Saurav, Frankie ([id number]) on 02/28/2020 9:53:51 AM Referred By: ZAFAR POWERS Confirmed By:Frankie Mg MD
[2020-02-28] MEDS: LORATADINE 10 MG TABLET PO SCH (10:17)
[2020-02-28] MEDS: LISINOPRIL 5 MG TABLET PO SCH (10:17)
[2020-02-28] MEDS: PRENATAL VITAMINS W/ FOLIC ACID TABLET (FP) PO SCH (10:17)
[2020-02-28] MEDS: PANTOPRAZOLE 40 MG TABLET PO SCH (10:19)
[2020-02-28] MEDS: NICOTINE 21 MG/24 HOURS TOPICAL PATCH TD SCH (10:20)
--- NOTE | 2020-02-28 12:32 | PN ---
S CIWA - CIWA Score Nausea/Vomitin-No Nausea/No Vomiting Muscle Tremors: 2 Anxiety: 2 Agitation: 2 Paroxysmal Sweats: 2 Orientation: 0-Oriented Tacttile Disturbances: 0-None Auditory Disturbances: 0-None Visual Disturbances: 0-None Headache: 0-None Present CIWA-Ar Total Score: 8 BHS Progress Note (SOAP) Subjective: restless body aches acid reflux interrupted sleep agitation Objective: 02/28/20 12:31 Vital Signs Temperature 98.5 F 02/28/20 08:25 Pulse Rate 106 H 02/28/20 08:25 Respiratory Rate 18 02/28/20 08:25 Blood Pressure 103/63 02/28/20 08:25 O2 Sat by Pulse Oximetry (%) 95 02/28/20 08:25 Laboratory Tests 02/27/20 02/27/20 02/27/20 15:30 15:30 15:30 WBC 9.9 RBC 4.75 Hgb 14.8 Hct 43.4 MCV 91.3 MCH 31.1 MCHC 34.1 RDW 14.2 Plt Count 169 MPV 9.7 Sodium 142 Potassium 3.8 Chloride 109 H Carbon Dioxide 29 Anion Gap 4 L BUN 21.3 H Creatinine 1.2 Est GFR (CKD-EPI)AfAm 57.69 Est GFR (CKD-EPI)NonAf 49.78 Random Glucose 93 Calcium 9.0 Total Bilirubin 0.7 AST 21 ALT 20 Alkaline Phosphatase 85 Total Protein 7.9 Albumin 3.8 Syphilis Serology Reactive A* RPR Titer 02/27/20 15:30 WBC RBC Hgb Hct MCV MCH MCHC RDW Plt Count MPV Sodium Potassium Chloride Carbon Dioxide Anion Gap BUN Creatinine Est GFR (CKD-EPI)AfAm Est GFR (CKD-EPI)NonAf Random Glucose Calcium Total Bilirubin AST ALT Alkaline Phosphatase Total Protein Albumin Syphilis Serology RPR Titer Reactive 1:1 H labs noted aaox3 ambulating no acute distress Assessment: 02/28/20 12:31 withdrawals Plan: continue detox increase fluids
--- NOTE | 2020-02-28 13:15 | PN ---
S Progress Note Note: pt pharmacy was called and confirmed that pt is currently taking Biktarvy 1 tab po daily. last p/u RX on 02/15/2020
[2020-02-28] MEDS: BICTEGRAV/EMTRICIT/TENOFOV (BIKTARVY) 50-200-25 MG TABLET PO SCH (18:09)
[2020-02-28] MEDS: hydrOXYzine PAMOATE 25 MG CAPSULE (FP) PO PRN (22:23)
[2020-02-28] MEDS: ATORVASTATIN CA 10 MG TABLET (FP) PO SCH (22:24)
[2020-02-28] MEDS: MELATONIN 5 MG TABLETS PO SCH (22:24)
[2020-02-28] MEDS: THIAMINE HCL 100 MG TABLET (FP) PO SCH (22:24)
[2020-02-29] MEDS: chlordiazePOXIDE HCL 25 MG CAPSULE PO SCH ×4 (06:07→22:02)
[2020-02-29] MEDS: BICTEGRAV/EMTRICIT/TENOFOV (BIKTARVY) 50-200-25 MG TABLET PO SCH (07:21)
[2020-02-29] MEDS: CLOPIDOGREL BISULFATE 75 MG TABLET (FP) PO SCH (09:58)
[2020-02-29] MEDS: PRENATAL VITAMINS W/ FOLIC ACID TABLET (FP) PO SCH (09:58)
[2020-02-29] MEDS: PANTOPRAZOLE 40 MG TABLET PO SCH (09:58)
[2020-02-29] MEDS: LISINOPRIL 5 MG TABLET PO SCH (09:59)
[2020-02-29] MEDS: NICOTINE 21 MG/24 HOURS TOPICAL PATCH TD SCH (09:59)
[2020-02-29] MEDS: LORATADINE 10 MG TABLET PO SCH (10:03)
--- NOTE | 2020-02-29 13:04 | PN ---
S CIWA - CIWA Score Nausea/Vomitin-No Nausea/No Vomiting Muscle Tremors: 2 Anxiety: 1-Mildly Anxious Agitation: 1-Slight > Activity Paroxysmal Sweats: 1-Minimal Palms Moist Orientation: 0-Oriented Tacttile Disturbances: 0-None Auditory Disturbances: 0-None Visual Disturbances: 0-None Headache: 0-None Present CIWA-Ar Total Score: 5 BHS Progress Note (SOAP) Subjective: sweats shakes body aches Objective: 02/29/20 13:06 Vital Signs Temperature 97.5 F L 02/29/20 08:45 Pulse Rate 64 02/29/20 08:45 Respiratory Rate 16 02/29/20 08:45 Blood Pressure 118/74 02/29/20 08:45 O2 Sat by Pulse Oximetry (%) 96 02/28/20 20:43 Laboratory Tests 02/27/20 02/27/20 02/27/20 15:30 15:30 15:30 WBC 9.9 RBC 4.75 Hgb 14.8 Hct 43.4 MCV 91.3 MCH 31.1 MCHC 34.1 RDW 14.2 Plt Count 169 MPV 9.7 Sodium 142 Potassium 3.8 Chloride 109 H Carbon Dioxide 29 Anion Gap 4 L BUN 21.3 H Creatinine 1.2 Est GFR (CKD-EPI)AfAm 57.69 Est GFR (CKD-EPI)NonAf 49.78 Random Glucose 93 Calcium 9.0 Total Bilirubin 0.7 AST 21 ALT 20 Alkaline Phosphatase 85 Total Protein 7.9 Albumin 3.8 Syphilis Serology Reactive A* RPR Titer 02/27/20 15:30 WBC RBC Hgb Hct MCV MCH MCHC RDW Plt Count MPV Sodium Potassium Chloride Carbon Dioxide Anion Gap BUN Creatinine Est GFR (CKD-EPI)AfAm Est GFR (CKD-EPI)NonAf Random Glucose Calcium Total Bilirubin AST ALT Alkaline Phosphatase Total Protein Albumin Syphilis Serology RPR Titer Reactive 1:1 H labs noted aaox3 ambulating no acute distress Assessment: 02/29/20 13:09 withdrawals Plan: continue detox increase fluids
[2020-02-29] MEDS: THIAMINE HCL 100 MG TABLET (FP) PO SCH (22:02)
[2020-02-29] MEDS: MELATONIN 5 MG TABLETS PO SCH (22:02)
[2020-02-29] MEDS: ATORVASTATIN CA 10 MG TABLET (FP) PO SCH (22:02)
[2020-02-29] MEDS: hydrOXYzine PAMOATE 25 MG CAPSULE (FP) PO PRN (22:03)
[2020-03-01] MEDS ORDERED: chlordiazePOXIDE HCL 10 MG CAPSULE PO PRN
[2020-03-01] MEDS: chlordiazePOXIDE HCL 10 MG CAPSULE PO SCH ×4 (05:57→22:10)
[2020-03-01] MEDS: BICTEGRAV/EMTRICIT/TENOFOV (BIKTARVY) 50-200-25 MG TABLET PO SCH (07:04)
--- NOTE | 2020-03-01 09:14 | PN ---
[facility]HS CIWA - CIWA Score Nausea/Vomitin-No Nausea/No Vomiting Muscle Tremors: 2 Anxiety: 1-Mildly Anxious Agitation: 1-Slight > Activity Paroxysmal Sweats: No Perspiration Orientation: 0-Oriented Tacttile Disturbances: 0-None Auditory Disturbances: 0-None Visual Disturbances: 0-None Headache: 0-None Present CIWA-Ar Total Score: 4 BHS Progress Note (SOAP) Subjective: sweats anxiety Objective: 03/01/20 09:13 Vital Signs Temperature 97.8 F 03/01/20 05:44 Pulse Rate 65 03/01/20 05:44 Respiratory Rate 16 03/01/20 05:44 Blood Pressure 133/85 03/01/20 05:44 O2 Sat by Pulse Oximetry (%) 100 03/01/20 05:44 Laboratory Tests 02/27/20 02/27/20 02/27/20 15:30 15:30 15:30 WBC 9.9 RBC 4.75 Hgb 14.8 Hct 43.4 MCV 91.3 MCH 31.1 MCHC 34.1 RDW 14.2 Plt Count 169 MPV 9.7 Sodium 142 Potassium 3.8 Chloride 109 H Carbon Dioxide 29 Anion Gap 4 L BUN 21.3 H Creatinine 1.2 Est GFR (CKD-EPI)AfAm 57.69 Est GFR (CKD-EPI)NonAf 49.78 Random Glucose 93 Calcium 9.0 Total Bilirubin 0.7 AST 21 ALT 20 Alkaline Phosphatase 85 Total Protein 7.9 Albumin 3.8 Syphilis Serology Reactive A* RPR Titer COVID-19 (JOHN) 02/27/20 02/27/20 15:30 15:40 WBC RBC Hgb Hct MCV MCH MCHC RDW Plt Count MPV Sodium Potassium Chloride Carbon Dioxide Anion Gap BUN Creatinine Est GFR (CKD-EPI)AfAm Est GFR (CKD-EPI)NonAf Random Glucose Calcium Total Bilirubin AST ALT Alkaline Phosphatase Total Protein Albumin Syphilis Serology RPR Titer Reactive 1:1 H COVID-19 (JOHN) Not detected labs noted aaox3 ambulating no acute distress Assessment: 03/01/20 09:13 withdrawal sx Plan: continue detox
[2020-03-01] MEDS: NICOTINE 21 MG/24 HOURS TOPICAL PATCH TD SCH (10:13)
[2020-03-01] MEDS: LORATADINE 10 MG TABLET PO SCH (10:14)
[2020-03-01] MEDS: LISINOPRIL 5 MG TABLET PO SCH (10:14)
[2020-03-01] MEDS: PANTOPRAZOLE 40 MG TABLET PO SCH (10:16)
[2020-03-01] MEDS: PRENATAL VITAMINS W/ FOLIC ACID TABLET (FP) PO SCH (10:16)
--- NOTE | 2020-03-01 13:36 | PN ---
[facility] CIWA - CIWA Score Nausea/Vomitin-No Nausea/No Vomiting Muscle Tremors: 3 Anxiety: 2 Agitation: 2 Paroxysmal Sweats: 2 Orientation: 0-Oriented Tacttile Disturbances: 0-None Auditory Disturbances: 0-None Visual Disturbances: 0-None Headache: 0-None Present CIWA-Ar Total Score: 9 BHS Progress Note (SOAP) Subjective: sweats shakes restless interrupted sleep Objective: 03/01/20 13:36 Vital Signs Temperature 97.3 F L 03/01/20 08:51 Pulse Rate 77 03/01/20 08:51 Respiratory Rate 18 03/01/20 08:51 Blood Pressure 131/66 03/01/20 08:51 O2 Sat by Pulse Oximetry (%) 100 03/01/20 05:44 Laboratory Tests 02/27/20 02/27/20 02/27/20 15:30 15:30 15:30 WBC 9.9 RBC 4.75 Hgb 14.8 Hct 43.4 MCV 91.3 MCH 31.1 MCHC 34.1 RDW 14.2 Plt Count 169 MPV 9.7 Sodium 142 Potassium 3.8 Chloride 109 H Carbon Dioxide 29 Anion Gap 4 L BUN 21.3 H Creatinine 1.2 Est GFR (CKD-EPI)AfAm 57.69 Est GFR (CKD-EPI)NonAf 49.78 Random Glucose 93 Calcium 9.0 Total Bilirubin 0.7 AST 21 ALT 20 Alkaline Phosphatase 85 Total Protein 7.9 Albumin 3.8 Syphilis Serology Reactive A* RPR Titer COVID-19 (JOHN) 02/27/20 02/27/20 15:30 15:40 WBC RBC Hgb Hct MCV MCH MCHC RDW Plt Count MPV Sodium Potassium Chloride Carbon Dioxide Anion Gap BUN Creatinine Est GFR (CKD-EPI)AfAm Est GFR (CKD-EPI)NonAf Random Glucose Calcium Total Bilirubin AST ALT Alkaline Phosphatase Total Protein Albumin Syphilis Serology RPR Titer Reactive 1:1 H COVID-19 (JOHN) Not detected labs noted aaox3 ambulating no acute distress Assessment: 03/01/20 13:36 withdrawals Plan: continue detox increase fluids
[2020-03-01] MEDS: ALBUTEROL SO4 HFA INHALER IH PRN ×2 (14:37→22:09)
[2020-03-01] MEDS: THIAMINE HCL 100 MG TABLET (FP) PO SCH (22:09)
[2020-03-01] MEDS: ATORVASTATIN CA 10 MG TABLET (FP) PO SCH (22:10)
[2020-03-01] MEDS: MELATONIN 5 MG TABLETS PO SCH (22:10)
[2020-03-01] MEDS: hydrOXYzine PAMOATE 25 MG CAPSULE (FP) PO PRN (22:11)
[2020-03-02] MEDS: METHOCARBAMOL 500 MG TABLET PO PRN ×2 (01:45→22:34)
[2020-03-02] MEDS: chlordiazePOXIDE HCL 10 MG CAPSULE PO SCH ×2 (05:47→17:33)
[2020-03-02] MEDS: BICTEGRAV/EMTRICIT/TENOFOV (BIKTARVY) 50-200-25 MG TABLET PO SCH (07:10)
[2020-03-02] MEDS: PANTOPRAZOLE 40 MG TABLET PO SCH (10:13)
[2020-03-02] MEDS: LISINOPRIL 5 MG TABLET PO SCH (10:13)
[2020-03-02] MEDS: NICOTINE 21 MG/24 HOURS TOPICAL PATCH TD SCH (10:13)
[2020-03-02] MEDS: LORATADINE 10 MG TABLET PO SCH (10:13)
[2020-03-02] MEDS: PRENATAL VITAMINS W/ FOLIC ACID TABLET (FP) PO SCH (10:13)
[2020-03-02] MEDS: CLOPIDOGREL BISULFATE 75 MG TABLET (FP) PO SCH (10:13)
--- NOTE | 2020-03-02 11:55 | PN ---
S CIWA - CIWA Score Nausea/Vomitin-No Nausea/No Vomiting Muscle Tremors: 2 Anxiety: 2 Agitation: 2 Paroxysmal Sweats: No Perspiration Orientation: 0-Oriented Tacttile Disturbances: 0-None Auditory Disturbances: 0-None Visual Disturbances: 0-None Headache: 0-None Present CIWA-Ar Total Score: 6 BHS Progress Note (SOAP) Subjective: Anxious, Restless, Body Aches. Objective: Patient A & O X 3, observed ambulating on Unit unassisted. 03/02/20 12:28 Vital Signs Temperature 97.1 F L 03/02/20 11:26 Pulse Rate 85 03/02/20 11:26 Respiratory Rate 18 03/02/20 11:26 Blood Pressure 119/90 03/02/20 11:26 O2 Sat by Pulse Oximetry (%) 98 03/02/20 11:26 Laboratory Tests 02/27/20 02/27/20 02/27/20 15:30 15:30 15:30 WBC 9.9 RBC 4.75 Hgb 14.8 Hct 43.4 MCV 91.3 MCH 31.1 MCHC 34.1 RDW 14.2 Plt Count 169 MPV 9.7 Sodium 142 Potassium 3.8 Chloride 109 H Carbon Dioxide 29 Anion Gap 4 L BUN 21.3 H Creatinine 1.2 Est GFR (CKD-EPI)AfAm 57.69 Est GFR (CKD-EPI)NonAf 49.78 Random Glucose 93 Calcium 9.0 Total Bilirubin 0.7 AST 21 ALT 20 Alkaline Phosphatase 85 Total Protein 7.9 Albumin 3.8 Syphilis Serology Reactive A* RPR Titer COVID-19 (JOHN) 02/27/20 02/27/20 15:30 15:40 WBC RBC Hgb Hct MCV MCH MCHC RDW Plt Count MPV Sodium Potassium Chloride Carbon Dioxide Anion Gap BUN Creatinine Est GFR (CKD-EPI)AfAm Est GFR (CKD-EPI)NonAf Random Glucose Calcium Total Bilirubin AST ALT Alkaline Phosphatase Total Protein Albumin Syphilis Serology RPR Titer Reactive 1:1 H COVID-19 (JOHN) Not detected Lab Results noted. RPR Titer Result noted to be 'Reactive 1:1.' Patient reports that she initiated treatment (oral) approx. 2 months ago. However, she did not complete the full course of the treatment. 03/02/20 12:33 Assessment: 03/02/20 12:29 WITHDRAWAL SYMPTOMS. REACTIVE RPR. AZOTEMIA. 03/02/20 12:36 Plan: Continue Detox. Given reported history of only partial completion of treatment for Syphilis in recent past, Patient advised to consult Primary Care Medical Provider as soon as possible for further evaluation for Reactive RPR result noted on detox admission laboratory assessment. Patient verbalized understanding of recommendation. Copies of lab results will be given to Patient to take with her at time of Discharge from Detox Unit.
--- NOTE | 2020-03-02 12:38 | PN ---
[facility] Progress Note Note: Patient reported fall by tripping over chair in dining room. Fall was witnessed by other Patients but not by Unit staff. Patient denies injury to head after fall and she denies LOC after fall. Patient was able to get back into chair to sit up assistance of other Patients. Patient reports that she fell primarily on bilateral forearm and hands, on abdomen, and on right lower leg. She reports discomfort in all of those areas. VS: BP: 119/ 79; P: 86 bpm; T: 98.1; RR: 18. Patient A & O X 3, observed ambulating unassisted after fall but with limp. No swelling, bruising, erythema, wounds or discharge visualized on head or on aforementioned affected areas from fall. [facility] Fall Protocol # [address] Implemented[address] Report given to [address] Owen at [facility]. Patient taken via ambulance to [facility] for further evaluation. Jane Barnett NP
[2020-03-02] MEDS: ACETAMINOPHEN 325 MG TABLET (FP) PO PRN (20:46)
[2020-03-02] MEDS: ATORVASTATIN CA 10 MG TABLET (FP) PO SCH (22:34)
[2020-03-02] MEDS: MELATONIN 5 MG TABLETS PO SCH (22:34)
[2020-03-02] MEDS: THIAMINE HCL 100 MG TABLET (FP) PO SCH (22:34)
[2020-03-02] MEDS: hydrOXYzine PAMOATE 25 MG CAPSULE (FP) PO PRN (22:34)
[2020-03-03] MEDS ORDERED: chlordiazePOXIDE HCL 10 MG CAPSULE PO ONE (05:00)
[2020-03-03] MEDS: ACETAMINOPHEN 325 MG TABLET (FP) PO PRN (05:52)
[2020-03-03] MEDS: BICTEGRAV/EMTRICIT/TENOFOV (BIKTARVY) 50-200-25 MG TABLET PO SCH (07:56)
[2020-03-03] MEDS: LISINOPRIL 5 MG TABLET PO SCH (09:43)
[2020-03-03] MEDS: PRENATAL VITAMINS W/ FOLIC ACID TABLET (FP) PO SCH (09:43)
[2020-03-03] MEDS: LORATADINE 10 MG TABLET PO SCH (09:43)
[2020-03-03] MEDS: PANTOPRAZOLE 40 MG TABLET PO SCH (09:43)
[2020-03-03] MEDS: NICOTINE 21 MG/24 HOURS TOPICAL PATCH TD SCH (09:55)
--- NOTE | 2020-03-03 10:03 | DS ---
[facility] Detox Discharge Summary Admission Date: 02/27/20 Discharge Date: 03/03/20 - History Present History: Alcohol Dependence, Cocaine Dependence Additional Comments: Detox completed without any adverse effects,patient stable for discharge this morning to [facility] for rehab Alert and oriented x3, in no acute respiratory distress. Decreased ROM, ambulating in unit with wheelchair. Encouraged to followup with aftercare. Pertinent Past History: Asthma, COPD, HIV, HTN, HLD, CVA, Arthritis, b/l arm surgery alcohol, crack and nicotine use disorder. - Physical Exam Results Vital Signs: Vital Signs Temperature 98.2 F 03/03/20 07:30 Pulse Rate 58 L 03/03/20 07:30 Respiratory Rate 20 03/03/20 07:30 Blood Pressure 114/66 03/03/20 07:30 O2 Sat by Pulse Oximetry (%) 98 03/03/20 03:30 Vital Signs 03/03/20 03/03/20 03/03/20 07:30 09:20 11:30 Temperature 98.2 F 98.8 F 97.5 F L Pulse Rate 58 L 77 72 Respiratory 20 18 18 Rate Blood Pressure 114/66 141/91 126/72 O2 Sat by Pulse 98 Oximetry (%) Pertinent Admission Physical Exam Findings: Withdrawal symptoms. - Treatment Hospital Course: Detox Protocol Followed, Detoxed Safely, Responded well, Discharged Condition Good, Rehab Referral Accepted Patient has Accepted a Rehab Referral to: [facility] - Medication Discharge Medications: Ambulatory Orders Albuterol Sulfate Inhaler - [Ventolin Hfa Inhaler -] 2 inh PO Q4H PRN 02/27/20 Ascorbate Calcium [Vitamin C] 500 mg PO BID 02/27/20 Atorvastatin Calcium [Lipitor] 10 mg PO HS 02/27/20 Clopidogrel Bisulfate [Plavix -] 75 mg PO ASDIR 02/27/20 Diphenhydramine [Benadryl -] 50 mg PO PRN PRN 02/27/20 Docusate Sodium [Colace] 100 mg PO HS 02/27/20 Indomethacin [Indocin -] 25 mg PO BID 02/27/20 Lisinopril [Prinivil] 5 mg PO DAILY 02/27/20 Loratadine [Claritin -] 10 mg PO DAILY 02/27/20 Multivitamins [Tab-A-Vit -] 1 tab PO DAILY 02/27/20 - Diagnosis (1) Alcohol abuse with withdrawal, uncomplicated Current Visit: Yes Status: Acute (2) Cocaine dependence Current Visit: Yes Status: Chronic Qualifiers: Substance use status: uncomplicated Qualified Code(s): F14.20 - Cocaine dependence, uncomplicated (3) Arthritis Current Visit: Yes Status: Chronic (4) COPD (chronic obstructive pulmonary disease) Current Visit: Yes Status: Chronic (5) HIV (human immunodeficiency virus infection) Current Visit: Yes Status: Chronic (6) HLD (hyperlipidemia) Current Visit: Yes Status: Chronic (7) HTN (hypertension) Current Visit: Yes Status: Chronic (8) Nicotine dependence Current Visit: Yes Status: Chronic Qualifiers: Nicotine product type: cigarettes Substance use status: uncomplicated Qualified Code(s): F17.210 - Nicotine dependence, cigarettes, uncomplicated (9) DVT (deep venous thrombosis) Current Visit: Yes Status: Resolved (10) Fall Current Visit: No Status: Acute Qualifiers: Encounter type: initial encounter Qualified Code(s): W19.XXXA - Unspecified fall, initial encounter - AMA Did Patient Leave Against Medical Advice: No
[2020-03-03 14:19] VITALS: BP 134/89; PULSE 74; TEMP 98
[2020-03-03] MEDS ORDERED: MAGNESIUM HYDROX 2400MG/30ML ORAL SUSPENSION 30 ML CUP PO PRN (18:21)
[2020-03-03] MEDS ORDERED: LOPERAMIDE HCL 2 MG CAPSULE PO PRN (18:21)
[2020-03-03] MEDS ORDERED: guaiFENesin 200 MG/10 ML 10 ML UNIT-DOSE CUPS PO PRN (18:21)
[2020-03-03] MEDS ORDERED: P-EPHED 60MG/TRIPROLIDI 2.5MG TABLET PO PRN (18:21)
[2020-03-03] MEDS ORDERED: NICOTINE POLACRILEX 2 MG GUM BUC PRN (18:21)
[2020-03-03] MEDS ORDERED: MENTHOL/PHENOL 1 EACH UD MM PRN (18:21)
[2020-03-03] MEDS ORDERED: MAGNESIUM CITRATE 300 ML BOTTLE PO PRN (18:21)
[2020-03-03] MEDS ORDERED: MAG HYDROX/AL HYDROX/SIMETH 30 ML UNIT-DOSE CUP PO PRN (18:21)
[2020-03-03] MEDS ORDERED: ACETAMINOPHEN 325 MG TABLET (FP) PO PRN (18:21)
[2020-03-03] MEDS ORDERED: ATORVASTATIN CA 10 MG TABLET (FP) PO SCH (22:00)
[2020-03-03] MEDS ORDERED: THIAMINE HCL 100 MG TABLET (FP) PO SCH (22:00)
[2020-03-03] MEDS ORDERED: MELATONIN 5 MG TABLETS PO SCH (22:00)
[2020-03-04] MEDS ORDERED: LISINOPRIL 5 MG TABLET PO SCH (10:00)
[2020-03-04] MEDS ORDERED: CLOPIDOGREL BISULFATE 75 MG TABLET (FP) PO SCH (10:00)
[2020-03-04] MEDS ORDERED: PRENATAL VITAMINS W/ FOLIC ACID TABLET (FP) PO SCH (10:00)
[2020-03-04] MEDS ORDERED: NICOTINE 14 MG/24 HOURS TOPICAL PATCH TD SCH (10:00)
== END 2020-03-03 15:46 | disposition other institution (70) | DRG 774 ==
LOC: YASAS 13:45 → Y6N 15:29
PROVIDERS: ADMIT Allergy & Immunology; ATTEND Allergy & Immunology
PROC: HZ2ZZZZ Detoxification Services for Substance Abuse Treatment (ICD-10-PCS; principal; 2020-02-27)
DX: F10.230 Alcohol dependence with withdrawal, uncomplicated (principal); F14.20 Cocaine dependence, uncomplicated; F17.210 Nicotine dependence, cigarettes, uncomplicated; F10.282 Alcohol dependence with alcohol-induced sleep disorder; F10.24 Alcohol dependence with alcohol-induced mood disorder; Z21 Asymptomatic human immunodeficiency virus [HIV] infection status; I10 Essential (primary) hypertension; J44.9 Chronic obstructive pulmonary disease, unspecified; E78.5 Hyperlipidemia, unspecified; A53.0 Latent syphilis, unspecified as early or late; M12.9 Arthropathy, unspecified; R76.11 Nonspecific reaction to tuberculin skin test without active tuberculosis; R26.89 Other abnormalities of gait and mobility; R79.89 Other specified abnormal findings of blood chemistry; I69.859 Hemiplegia and hemiparesis following other cerebrovascular disease affecting unspecified side; Z86.718 Personal history of other venous thrombosis and embolism; Z79.02 Long term (current) use of antithrombotics/antiplatelets; M79.661 Pain in right lower leg; M79.641 Pain in right hand; W01.190A Fall on same level from slipping, tripping and stumbling with subsequent striking against furniture, initial encounter; Y92.238 Other place in hospital as the place of occurrence of the external cause; Y93.89 Activity, other specified; Y99.8 Other external cause status
CPT/HCPCS: 36415; 71046-TC-FY; 80053; 85027; 86593; 86780; 93005; 93010; C9803; U0003

== ENCOUNTER 2020-03-02 12:52 | Emergency (ER) | payer OTHER ==
[2020-03-02 13:02] VITALS: BP 124/84; PULSE 78; TEMP 97.3; BMI 31.8
--- NOTE | 2020-03-02 13:36 | PDOC ---
History of Present Illness - General Chief Complaint: Injury Stated Complaint: FALL Time Seen by Provider: 03/02/20 13:04 History Source: Patient Exam Limitations: No Limitations - History of Present Illness Initial Comments: 03/02/20 14:42 59F PMH HIV, COPD, HTN, HLD, polysubstance abuse (crack-cocaine, etoh) BIBEMS from [facility] (etoh detx) for evaluation of right coronel pain and right fingers pain after witnessed trip and fall in the dining room over a chair. Pt felt woozy upon standing up but states she has been feeling woozy since starting librium. Pt denies head strike and LOC, corroborated with witness. No preceding sx of cp/palpitations, sob. Pt denies n/v, changes in vision. Per [facility] note, patient was ambulatory after incident. Allergies reviewed with patient. Past History - Medical History Allergies/Adverse Reactions: Allergies Allergy/AdvReac Type Severity Reaction Status Date / Time aspirin Allergy Verified 03/02/20 12:59 ibuprofen AdvReac Nausea Verified 03/02/20 12:59 Home Medications: Ambulatory Orders Albuterol Sulfate Inhaler - [Ventolin Hfa Inhaler -] 2 inh PO Q4H PRN 02/27/20 Ascorbate Calcium [Vitamin C] 500 mg PO BID 02/27/20 Atorvastatin Calcium [Lipitor] 10 mg PO HS 02/27/20 Clopidogrel Bisulfate [Plavix -] 75 mg PO ASDIR 02/27/20 Diphenhydramine [Benadryl -] 50 mg PO PRN PRN 02/27/20 Docusate Sodium [Colace] 100 mg PO HS 02/27/20 Indomethacin [Indocin -] 25 mg PO BID 02/27/20 Lisinopril [Prinivil] 5 mg PO DAILY 02/27/20 Loratadine [Claritin -] 10 mg PO DAILY 02/27/20 Multivitamins [Tab-A-Vit -] 1 tab PO DAILY 02/27/20 Asthma: Yes Cardiac Disorders: Yes (High Cholesterol) COPD: Yes Diabetes: No GI Disorders: No Disorders: No HTN: Yes Kidney Stones: No Seizures: No - Surgical History Abdominal Surgery: No Appendectomy: No Cardiac Surgery: No Cholecystectomy: No Lung Surgery: No Neurologic Surgery: No Orthopedic Surgery: No - Reproductive History PID: No - Immunization History Immunization Up to Date: Yes - Psycho-Social/Smoking History Smoking History: Never smoked Have you smoked in the past 12 months: Yes Number of Cigarettes Smoked Daily: 20 'Breaking Loose' booklet given: 02/27/20 - Substance Abuse Hx (Audit-C & DAST Scrn) How often the patient has a drink containing alcohol: 4 0r more times/wk Number of drinks the patient has on a typical day: 3 or 4 How often the patient has six or more drinks on one occasion: Never Score: In Men: 4 or > Positive; In Women: 3 or > Positive: 5 Screen Result (Pos requires Nsg. Audit-10AR): Positive In the last yr the pt used illegal drug/Rx for NonMed reason: Yes Score: Yes response is considered Positive: 1 Screen Result (Positive result requires Nsg. DAST-10): Positive Review of Systems - Review of Systems Comments:: CONSTITUTIONAL: Denies F / C HEENT: Denies head strike, LOC, changes in vision RESP: Denies SOB CARD: Denies chest pain, palpitations GI: Denies N / V : Denies dysuria, hematuria, frequency NEURO: Denies numbness, tingling, weakness MSK: + fall, right coronel pain, and right fingers pain SKIN: Denies abrasions, lacerations *Physical Exam - Vital Signs Last Vital Signs Temp Pulse Resp BP Pulse Ox 97.3 F L 78 20 124/84 100 03/02/20 13:00 03/02/20 13:00 03/02/20 13:00 03/02/20 13:00 03/02/20 13:00 - Physical Exam GEN: NAD, AAOx3. HEENT: NC/AT, EOMI. Normal voice. Supple neck w/ FROM. CV: S1/S2, RRR, no m/r/g LUNG: CTAB GI: Soft, ndnt, +BS, no guarding, no rebound. MSK: FROM of RLE and LLE. FROM of the b/l hands. TTP of the right coronel w/o deformity. No obvious deformities of all extremities. NEURO: Moving all extremities well. 5/5 strength UE and LE b/l. symmetric sensation. ambulates in ED with normal gait, unassisted SKIN: Warm, dry, no rashes appreciated. PSYCH: Normal mood and affect. Medical Decision Making - Medical Decision Making 59F BIBEMS from [facility] after trip and fall w/o head strike or LOC. c/o coronel pain and finger pain. Exam unremarkable except ttp of the right coronel. - XR right hand and tib-fib 03/02/20 14:48 XR reports w/o acute fracture DC back to [facility] Discharge - Discharge Information Problems reviewed: Yes Clinical Impression/Diagnosis: Pain in right coronel, Finger pain, right Fall Qualifiers: Encounter type: initial encounter Qualified Code(s): W19.XXXA - Unspecified fall, initial encounter Condition: Good Disposition: TRANSFER ACUTE CARE/OTHER HOSP - Follow up/Referral - Patient Discharge Instructions Additional Instructions: You were seen in the Emergency Department for a fall. Your X-rays did not show fractures. We are sending you back to [facility] to finish Detox. Follow up with your Primary Care doctor in the next 10 days. Return to the Emergency Department immediately if you experience new or wor sening symptoms. - Post Discharge Activity
--- OUTSIDE RECORDS SUMMARY | 2020-03-02 13:36 | XMS ---
:1960 Author Organization [facility] Support Name Relationship Address Phone UE, UNEMPLOYED Unavailable Unavailable Unavailable UE Unavailable Unavailable Unavailable [employer]LA [employer] [address] [phone], [place] [address] liana denys Unavailable Unavailable Unavailable Re-disclosure Warning The records [...] is protected by Article 27-F of the [facility] Public Health law. If you continue you may haveaccess to information: Regarding HIV / AIDS; Provided by facilities licensed or operated by the [facility] Office of Mental Health; or Provided by the [facility] Office for People With Developmental Disabilities. If such information is present, then the following [facility] mandated warning applies: This information has [...] law may result in a fine or shelter sentence or both. A general authorization for the release of medical or other information is NOT sufficient authorization for further disclosure. Encounters Encounter Providers Location Date Indications Data Source(s ) Outpatient [facility] 02/25/2019 eCW3 ([facility] A28 12:00:00 AM Health Care) EDT - 02/25/2019 12:00:00 AM EDT Outpatient [facility] 01/28/2019 eCW3 ([facility] A28 12:00:00 AM Health Care) EDT - 01/28/2019 12:00:00 AM EDT Medications Medication Brand Start Product Dose Route Administrative Pharmacy [facility] Indications Reaction Description Data Name Date Form Instructions Instructions Source(s) Biktarvy Biktar .0 active Biktarvy e CW3 50-200-25 vy 2020 {tabl 50-200-25 MG ( [place] MG 50-200 12:00: et} [place] -25 MG 00 AM Health EDT Care) Indomethaci Indome .0 active Indomet hacin eCW3 n 25 MG thacin 2020 {caps 25 MG ([place] Oral 25 MG [...] 00 AM Health EDT Care) Syringe UNK 05/30/ active Syringe eCW3 (Disposable 2020 (Disposable) ([place] ) 1 ML 12:00: 1 ML [place] 00 AM Health EDT Care) Syringe UNK 0530/ active Syringe eCW3 (Disposable 2020 (Disposable) ([place] ) 1 ML 12:00: 1 ML [place] 00 AM Health EDT Care) Syringe UNK 05/30/ active Syringe eCW3 (Disposable 2020 (Disposable) ([place] [...] EDT Care) e 2 % Clotrimazol Clotri 04/21/ 1.0 active Clotrim azole eCW3 e 10 MG/ML [...] Health EDT _bedt Care) denisse} quetiapine Seroqu 03/31/ 1.0 active Seroquel 25 eCW3 25 MG Oral [...] denisse} Care) MG Biktarvy Biktar .0 active Biktarnaresh araujo CW3 50-200-25 vy 2019 {tabl 50-200-25 MG ( [place] MG 50-200 12:00: et} [place] -25 MG 00 AM Health EDT Care) Biktarvy Biktar .0 active Garlandktarnaresh araujo CW3 50-200-25 vy 2020 {tabl 50-200-25 MG [...] 1.0 active Biktarvy e CW3 50-200-25 vy 2019 {tabl 50-200-25 MG ( [place] MG 50-200 12:00: et} [place] -25 MG 00 AM Health EDT Care) Vitamin B Cyanoc 1.0 active Cyanocoba cortez eCW3 12 1 MG/ML [...] Cyanocoba cortez eCW3 12 1 MG/ML obalam 2018 {ml} in 1000 ([facility] Injectable in 12:00: MCG/ML [facility] Solution 1000 00 AM Health Cyanocobala MCG/ML EST Care) min 1000 MCG/ML Vitamin B Cyanoc 1.0 active Cyanocoba cortez eCW3 12 1 MG/ML obalam 2018 {ml} in 1000 ([facility] son Injectable in 12:00: MCG/ML [facility] Solution 1000 00 AM Health Cyanocobala MCG/ML EST Care) min 1000 MCG/ML Vitamin B Cyanoc 1.0 active Cyanocoba cortez eCW3 12 1 MG/ML [...] Plavix 75 EST Care) MG Diphenhydra Diphen .0 active Diphenh ydrAM eCW3 mine hydrAM 2018 [...] Diphenhydra Diphen 2.0 active Diphenh ydrAM eCW3 [facility] 2018 {caps INE HCl 25 ([place] n [...] Diphenhydra Diphen 2.0 active Diphenh ydrAM eCW3 [facility] 2018 {caps INE HCl 25 ([place] n Hydrochlori INE 12:00: ule_a MG [place] de 25 MG HCl 25 00 AM t_bed Health Oral MG EST time_ Care) Capsule as_ne DiphenhydrA eded} MINE HCl 25 MG Diphenhydra Diphen .0 active Diphenh ydrAM eCW3 [facility] 2018 {caps INE HCl 25 ([place] n [...] Diphenhydra Diphen 2.0 active Diphenh ydrAM eCW3 [facility] 2018 {caps INE HCl 25 ([place] n [...] Colace 100 eCW3 Sodium 100 100 MG 2019 {caps MG ([place] n MG Oral 12:00: [...] name Policy type Policy ID Covered Covered republican's Policy P eugenia / Coverage republican ID relationship to Lorenz Inf ormation type lorenz [employer] [id number] SP [id number] [id number] SP [id number] [employer] -[facility]ACON [id number] SP [id number] [employer] Problems, Conditions, and Diagnoses Code Display Name Description Problem Type Effective Data Sour ce(s) Dates J44.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 ([place] obstructive obstructive 12:00:00 AM [facility] pulmonary disease pulmonary disease EDT Care) with acute with acute exacerbation exacerbation 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, Migraine aura, Problem 12/23/2019 eCW3 ( [place] persistent, persistent, 12:00:00 AM [facility] intractable, with intractable, with EDT Care) status migrainosus status migrainosus F19.10 Substance abuse Substance abuse Problem 11/02/2019 eCW3 ([place] 12:00:00 AM [facility] EDT Care) J30.2 Seasonal allergy Seasonal allergies Problem 10/14/2019 eCW3 ([place] 12:00:00 AM [facility] EDT Care) J30.2 Seasonal allergy Seasonal allergies Problem 10/14/2019 eCW3 ([place] 12:00:00 AM [facility] EDT Care) R53.82 Chronic fatigue Chronic fatigue Problem 05/13/2019 eCW3 ([place] 12:00:00 AM [facility] EST Care) R26.89 Balance problem Balance problem Problem 05/13/2019 eCW3 ([place] 12:00:00 AM [facility] EST Care) R53.82 Chronic fatigue Chronic fatigue Problem 05/13/2019 eCW3 ([place] 12:00:00 AM [facility] EST Care) R26.89 Balance problem Balance problem Problem 05/13/2019 eCW3 ([place] 12:00:00 AM [facility] EST Care) R58 Ecchymosis Ecchymosis Problem 02/25/2019 eCW3 ([place] 12:00:00 AM [facility] EDT Care) R58 Ecchymosis Ecchymosis Problem 02/25/2019 eCW3 ([place] 12:00:00 AM [facility] EDT Care) K59.01 Slow transit Slow transit Problem 01/07/2019 eCW3 ([place] constipation constipation 12:00:00 AM [facility] EDT Care) K59.01 Slow transit Slow transit Problem 01/07/2019 eCW3 ([place] constipation constipation 12:00:00 AM [place] [facility] EDT Care) K59.01 Slow transit Slow transit Problem 01/07/2019 eCW3 ([place] constipation constipation 12:00:00 AM [facility]) Results ID Date Data Source [id number] 02/27/2020 03:40:00 PM EDT [facility] Name Value Range Interpretation Description Data Sup porting Code Source(s) Document(s ) SARS [facility] coronavirus 2 RNA This lab was ordered by [facility] Jasmeet Rodriguez and reported by [facility]. Procedure Social History Code Duration Value Status Description Data Source(s ) Smoking 12/23/2019 12:00:00 Former Smoker completed Former Smoker eCW3 ([facility]) Smoking 12/23/2019 12:00:00 Former Smoker completed Former Smoker eCW3 ([facility]) Smoking 10/14/2019 12:00:00 Former Smoker completed Former Smoker eCW3 ([facility]) Smoking 10/14/2019 12:00:00 Former Smoker completed Former Smoker eCW3 ([facility]) Vital Signs ID Date Data Source UNK Name Value Range Interpretation Code Description Data Source(s) Diastolic blood 68 mm[Hg] 68 mm[Hg] eCW3 ([facility]) Systolic blood 101 mm[Hg] 101 mm[Hg] eCW3 ([facility]) Body temperature 98.3 [degF] 98.3 [degF] eCW3 ( [facility]) Heart rate 16 /min 16 /min eCW3 ([facility]) Body height [in_i] eCW3 ([facility]) Diastolic blood 75 mm[Hg] 75 mm[Hg] eCW3 ([facility]) Systolic blood 126 mm[Hg] 126 mm[Hg] eCW3 ([facility]) Body temperature 98.3 [degF] 98.3 [degF] eCW3 ( [facility]) Heart rate 16 /min 16 /min eCW3 ([facility]) Body mass index 29.62 kg/m2 29.62 kg/m2 eCW3 ([facility] (BMI) [Ratio] [facility]) Body weight 178 [lb_av] 178 [lb_av] eCW3 ([facility]) Body height [in_i] eCW3 ([facility]) Patient Treatment Plan of Care Planned Activity Planned Date Details Description Data Source (s) Biktarvy 50-200-25 MG 01/09/2020 eCW3 ( [place] 12:00:00 AM [facility]) Indomethacin 25 MG Oral 01/01/2020 eCW3 ([place] Capsule 12:00:00 AM [facility]) Syringe (Disposable) 1 ML 10/14/2019 eC W3 ([facility] 12:00:00 AM [facility]) Syringe (Disposable) 1 ML 10/14/2019 eC W3 ([facility] 12:00:00 AM [facility]) Biktarvy 50-200-25 MG 10/11/2019 eCW3 ( [facility] 12:00:00 AM [facility]) Clotrimazole 10 MG/ML 09/05/2019 eCW3 ( [facility] Topical Solution 12:00:00 AM [facility]) Ketoconazole 20 MG/ML 09/05/2019 eCW3 ( [facility] Topical Cream 12:00:00 AM [facility] ) Clotrimazole - 09/05/2019 eCW3 ([facility] 12:00:00 AM [facility]) Clotrimazole 10 MG/ML 09/05/2019 eCW3 ( [facility] Topical Solution 12:00:00 AM [facility]) Ketoconazole 20 MG/ML 09/05/2019 eCW3 ( [facility] Topical Cream 12:00:00 AM [facility] ) Clotrimazole - 09/05/2019 eCW3 ([facility] 12:00:00 AM [facility]) Biktarvy 50-200-25 MG 08/02/2019 eCW3 ( [facility] 12:00:00 AM [facility]) Biktarvy 50-200-25 MG 08/02/2019 eCW3 ( [facility] 12:00:00 AM [facility]) Lisinopril 5 MG Oral Tablet 05/13/2019 eCW3 ([facility] 12:00:00 AM [facility]) Lisinopril 5 MG Oral Tablet 05/13/2019 eCW3 ([facility] 12:00:00 AM [facility]) Diphenhydramine 05/13/2019 eCW3 ([place] Hydrochloride 25 MG Oral 12:00:00 AM [facility]) Capsule clopidogrel 75 MG Oral 05/13/2019 eCW3 ([place] Tablet [Plavix] 12:00:00 AM [facility]) Vitamin B 12 1 MG/ML 05/13/2019 eCW3 ([place] Injectable Solution 12:00:00 AM [facility]) Lisinopril 5 MG Oral Tablet 05/13/2019 eCW3 ([place] 12:00:00 AM [facility]) Diphenhydramine 05/13/2019 eCW3 ([place] Hydrochloride 25 MG Oral 12:00:00 AM [facility]) Capsule clopidogrel 75 MG Oral 05/13/2019 eCW3 ([place] Tablet [Plavix] 12:00:00 AM [facility]) Vitamin B 12 1 MG/ML 05/13/2019 eCW3 ([place] Injectable Solution 12:00:00 AM [facility]) Lisinopril 5 MG Oral Tablet 05/13/2019 eCW3 ([place] 12:00:00 AM [facility]) topiramate 25 MG Oral 03/13/2019 eCW3 ( [place] Tablet 12:00:00 AM [facility]) Acetaminophen 500 MG Oral 11/19/2018 eC W3 ([place] Tablet 12:00:00 AM [facility])
--- NOTE | 2020-03-02 15:42 | PDOC ---
Documentation entered by Kunal Craig SCRIBE, acting as scribe for Mya Owen MD. Mya Owen MD: This documentation has been prepared by the Rafa gayle Angel, SCRIBE, under my direction and personally reviewed by me in its entirety. I confirm that the documentation accurately reflects all work, treatment, procedures, and medical decision making performed by me. Attending Attestation - Resident Resident Name: Fidencio Stovall - ED Attending Attestation I have performed the following: I have examined & evaluated the patient, The case was reviewed & discussed with the resident, I agree w/resident's findings & plan, Exceptions are as noted - HPI HPI: 03/02/20 13:35 The patient is a 59 year old female with a significant past medical history of HIV, COPD, HTN, HLD, and substance abuse who presents to the ED from [facility] with right coronel pain and pain in her fingers on her right hand s/p witnessed trip and fall an hour prior to arrival. The patient states feeling woozy which has been ongoing since she started librium. The patient states she got up and hit her right coronel on a chair leg causing her to trip and fall, catching herself with her hands. The patient denies any head trauma or LOC. After the fall, the patient began experiencing pain in her right fingers. The patient denies any preceding symptoms such as lightheadedness, chest pain or SOB. Patient denies cough, neck pain, back pain, N/V/D, LOC, head trauma or changes in vision. - Physicial Exam PE: 03/02/20 13:43 GENERAL: nontoxic-appearing, A/Ox4, no distress, answers questions appropriately HEENT: PERRLA, EOMI, moist mucous membranes NECK/BACK: no midline ttp, no spinal stepoff or deformity, no hematoma, full ROM, neck supple CARDIOVASCULAR: regular rate/rhythm, no MGR, strong peripheral pulses, capillary refill <2 seconds, extremities wwp, no edema LUNGS/RESPIRATORY: no respiratory distress, CTAB GI/ABDOMEN: symmetric atyx-ow-sivk, normoactive BS, soft, no ttp, no midline pu lsatile masses : no CVA tenderness MSK/EXTREMITIES: no muscle atrophy, no acute deformity SKIN: warm and dry, no pallor, no jaundice, no rash, no pathologic-appearing bruising, no skin breakdown, no cuts, no lesions NEUROLOGICAL: GCS 15, CN II-XII grossly intact, 5/5 strength proximally and distally, no facial droop - Medical Decision Making [id number] who presents from [facility] after a mechanical fall now with finger and coronel pain. Initial Vital Signs Temp Pulse Resp BP Pulse Ox 97.3 F L 78 20 124/84 100 03/02/20 13:00 03/02/20 13:00 03/02/20 13:00 03/02/20 13:00 03/02/20 13:00 Most likely soft tissue contusion, sprain/strain, less likely any significant fracture or other abnormality. Provider Orders Category Date Time Status FINGER(S) RIGHT [RAD] Stat Radiology 03/02/20 13:00 Completed LEG TIB/FIB-RIGHT [RAD] Stat Radiology 03/02/20 13:00 Completed Patient's XRs show nothing acute. Per her request her leg is wrapped in CHERRIE bandage. She feels much better, is seen ambulating throughout the dept. She is appropriate for discharge back to [facility] where they were expecting her back after medical clearance for her last day of detox. Return precautions discussed with the patient. Discharge - Discharge Information Problems reviewed: Yes Clinical Impression/Diagnosis: Pain in right coronel, Finger pain, right Fall Qualifiers: Encounter type: initial encounter Qualified Code(s): W19.XXXA - Unspecified fall, initial encounter Condition: Good Disposition: TRANSFER ACUTE CARE/OTHER HOSP - Admission No - Follow up/Referral - Patient Discharge Instructions Additional Instructions: You were seen in the Emergency Department for a fall. Your X-rays did not show fractures. We are sending you back to [facility] to finish Detox. Follow up with your Primary Care doctor in the next 10 days. Return to the Emergency Department immediately if you experience new or worsening symptoms. - Post Discharge Activity
== END 2020-03-02 16:39 | disposition short-term general hospital (02) ==
LOC: JER 12:52
DX: M79.661 Pain in right lower leg (principal); M79.644 Pain in right finger(s)
CPT/HCPCS: 73140-TC-RT-FY; 73590-TC-RT-FY; 99284-25

== ENCOUNTER 2020-03-03 14:22 | Inpatient (IN) | payer OTHER ==
--- OUTSIDE RECORDS SUMMARY | 2020-03-03 14:25 | XMS ---
:1960 [facility] Organization [facility] Support Name Relationship Address Phone UE, UNEMPLOYED Unavailable Unavailable Unavailable UE Unavailable Unavailable Unavailable MARLA HOYT PARTNER [address], [place] [address] MARLA HOYT Other [address] [place] [address] liana denys Unavailable Unavailable Unavailable Re-disclosure Warning [...] is protected by Article 27-F of the [facility] Public Health law. If you continue you may haveaccess to information: Regarding HIV / AIDS; Provided by facilities licensed or operated by the [facility] Office of Mental Health; or Provided by the [facility] Office for People With Developmental Disabilities. If such information is present, then the following [facility] mandated warning applies: This information has been [...] law may result in a fine or mcfp sentence or both. A general authorization for the release of medical or other information is NOT sufficient authorization for further disclosure. Encounters Encounter Providers Location Date Indications Data Source(s ) Outpatient [facility] 02/25/2019 eCW3 ([facility] A28 12:00:00 AM Health Care) EDT - 02/25/2019 12:00:00 AM EDT Outpatient [facility] 01/28/2019 eCW3 ([facility] A28 12:00:00 AM Health Care) EDT - 01/28/2019 12:00:00 AM EDT Medications Medication Brand Start Product Dose Route Administrative Pharmacy [facility] Indications Reaction Description Data Name Date Form Instructions Instructions Source(s) Leonor Biktar .0 active Biktarvy e CW3 50-200-25 [...] 00 AM Health EDT Care) Biktarvy Biktar 1.0 active Biktarvy e CW3 50-200-25 vy [...] EDT Care) e 2 % Clotrimazol Clotri 1.0 active Clotrim azole eCW3 e 10 [...] Health EDT _bedt Care) denisse} Clotrimazol Clotri 1.0 active Clotrim azole eCW3 e - mazole [...] denisse} Care) MG Biktarvy Biktar .0 active Biktarvy e CW3 [...] 00 AM Health EDT Care) Biktarvy Biktar 1.0 active Biktarvy e CW3 50-200-25 vy [...] 00 AM Health EST Care) clopidogrel Plavix 1.0 active Plavix 75 MG eCW3 75 MG Oral 75 MG 2019 {tabl ([place] Tablet 12:00: et} [place] [Plavix] 00 AM Health Plavix 75 EST Care) MG Diphenhydra Diphen 2.0 active Diphenh ydrAM eCW3 [facility] 2018 {caps INE HCl 25 ([place]udso [...] Diphenhydra Diphen 2.0 active Diphenh ydrAM eCW3 [facility] 2018 {caps INE HCl 25 ([place] n Hydrochlori INE 12:00: ule_a MG [place] de 25 MG HCl 25 00 AM t_bed Health Oral MG EST time_ Care) Capsule as_ne DiphenhydrA eded} MINE HCl 25 MG Diphenhydra Diphen 2.0 active Diphenh ydrAM eCW3 [facility] 2018 {caps INE HCl 25 (Hudso [...] Diphenhydra Diphen 2.0 active Diphenh ydrAM eCW3 [facility] 2018 {caps INE HCl 25 (Hudso [...] EST Care) min 1000 MCG/ML topiramate Topira .0 active Topirama te eCW3 [...] MG EDT Care) Biktarvy Biktar .0 active Leonor araujo CW3 50-200-25 vy 2019 {tabl 50-200-25 MG ( [place] MG 50-200 12:00: et} [place] -25 MG 00 AM Health EDT Care) Biktarvy Biktar .0 active Leonor araujo CW3 [...] Oral 12:00: ule_a [place] Capsule 00 AM s_ne Health [Colace] EDT ded} Care) Colace 100 MG Docusate Colace .0 active Colace 100 eCW3 Sodium 100 100 MG 2018 {caps MG ([place] n MG Oral 12:00: ule_a [place] Capsule 00 AM s_ne Health [Colace] EDT ded} Care) Colace 100 MG Docusate Colace .0 active Colace 100 eCW3 Sodium 100 100 MG 2019 {caps MG ([place] n MG Oral 12:00: ule_a [place] Capsule 00 AM [facility] [Colace] EDT ded} Care) Colace 100 [...] name Policy type Policy ID Covered Covered constitution party's Policy P eugenia / Coverage constitution party ID relationship to Lorenz Inf ormation type lorenz -BEACON [id number] SP [id number] [facility] AMIDACARE [id number] SP [id number] [facility] [id number] [facility] Problems, Conditions, and Diagnoses Code Display [...] Problem 11/02/2019 eCW3 ([place] 12:00:00 AM [facility] EDT Care) J30.2 Seasonal allergy Seasonal allergies Problem 10/14/2019 eCW3 ([place] 12:00:00 AM [facility] EDT Care) J30.2 Seasonal allergy Seasonal allergies Problem 10/14/2019 eCW3 ([place] 12:00:00 AM [facility] EDT Care) R53.82 Chronic fatigue Chronic fatigue [...] Problem 02/25/2019 eCW3 ([place] 12:00:00 AM [facility] EDT Care) R58 Ecchymosis Ecchymosis Problem 02/25/2019 eCW3 ([place] 12:00:00 AM [facility] EDT Care) K59.01 Slow transit Slow transit Problem 01/07/2019 eCW3 ([facility] constipation 12:00:00 AM [facility] EDT Care) K59.01 Slow transit Slow transit Problem 01/07/2019 eCW3 ([facility] constipation 12:00:00 AM [facility] EDT Care) K59.01 Slow transit Slow transit Problem 01/07/2019 eCW3 ([facility] on constipation constipation 12:00:00 AM [facility] EDT [facility]) Results ID Date Data Source [id number] 02/27/2020 03:40:00 PM EDT [facility] Name Value Range Interpretation Description Data Sup porting Code Source(s) Document(s ) SARS [facility] coronavirus 2 RNA This lab was ordered by [facility] Jasmeet Rodriguez and reported by [facility]. Procedure Social History Code Duration Value Status Description Data Source(s ) Smoking 12/23/2019 12:00:00 Former Smoker completed Former Smoker eCW3 ([facility]) Smoking 12/23/2019 12:00:00 Former Smoker completed Former Smoker eCW3 ([facility]) Smoking 10/14/2019 12:00:00 Former Smoker completed Former Smoker eCW3 ([facility]) Smoking 10/14/2019 12:00:00 Former Smoker completed Former Smoker eCW3 ([facility]) Vital Signs ID Date Data Source UNK Name Value Range Interpretation Code Description Data Source(s) Diastolic blood 68 mm[Hg] 68 mm[Hg] eCW3 ([facility]) Systolic blood 101 mm[Hg] 101 mm[Hg] eCW3 ([facility]) Body temperature 98.3 [degF] 98.3 [degF] eCW3 ( [facility]) Heart rate 16 /min 16 /min eCW3 ([facility]) Body height [in_i] eCW3 ([facility]) Diastolic blood 75 mm[Hg] 75 mm[Hg] eCW3 ([facility]) Systolic blood 126 mm[Hg] 126 mm[Hg] eCW3 ([facility]) Body temperature 98.3 [degF] 98.3 [degF] eCW3 ( [facility]) Heart rate 16 /min 16 /min eCW3 ([facility]) Body mass index 29.62 kg/m2 29.62 kg/m2 eCW3 ([facility] (BMI) [Ratio] [facility]) Body weight 178 [lb_av] 178 [lb_av] eCW3 ([facility]) Body height [in_i] eCW3 ([facility]) Patient Treatment Plan of Care Planned Activity Planned Date Details Description Data Source (s) Biktarvy 50-200-25 MG 01/09/2020 eCW3 ( [facility] 12:00:00 AM [facility]) Indomethacin 25 MG Oral 01/01/2020 eCW3 ([facility] Capsule 12:00:00 AM [facility]) Syringe (Disposable) 1 ML 10/14/2019 eC W3 ([facility] 12:00:00 AM [facility]) Syringe (Disposable) 1 ML 10/14/2019 eC W3 ([facility] 12:00:00 AM [facility]) Biktarvy 50-200-25 MG 10/11/2019 eCW3 ( [facility] 12:00:00 AM [facility]) Clotrimazole 10 MG/ML 09/05/2019 eCW3 ( [facility] Topical Solution 12:00:00 AM [facility]) Ketoconazole 20 MG/ML 09/05/2019 eCW3 ( [facility] Topical Cream 12:00:00 AM [facility] ) Clotrimazole - 09/05/2019 eCW3 ([facility] 12:00:00 AM [facility]) Clotrimazole 10 MG/ML 09/05/2019 eCW3 ( [facility] Topical Solution 12:00:00 AM [facility] are) Ketoconazole 20 MG/ML 09/05/2019 eCW3 ( [facility] Topical Cream 12:00:00 AM [facility] ) Clotrimazole - 09/05/2019 eCW3 ([facility] 12:00:00 AM [facility]) Biktarvy 50-200-25 MG 08/02/2019 eCW3 ( [facility] 12:00:00 AM [facility]) Biktarvy 50-200-25 MG 08/02/2019 eCW3 ( [facility] 12:00:00 AM [facility]) Lisinopril 5 MG Oral Tablet 05/13/2019 eCW3 ([facility] 12:00:00 AM [facility]) Lisinopril 5 MG Oral Tablet 05/13/2019 eCW3 ([place] 12:00:00 AM [facility]) Diphenhydramine 05/13/2019 eCW3 ([place] Hydrochloride 25 MG Oral 12:00:00 AM [facility]) Capsule clopidogrel 75 MG Oral 05/13/2019 eCW3 ([place] Tablet [Plavix] 12:00:00 AM [facility]) Vitamin B 12 1 MG/ML 05/13/2019 eCW3 ([facility] [place] Injectable Solution 12:00:00 AM [facility]) Lisinopril 5 MG Oral Tablet 05/13/2019 eCW3 ([place] 12:00:00 AM [facility]) Diphenhydramine 05/13/2019 eCW3 ([place] Hydrochloride 25 MG Oral 12:00:00 AM [facility]) Capsule clopidogrel 75 MG Oral 05/13/2019 eCW3 ([place] Tablet [Plavix] 12:00:00 AM [facility]) Vitamin B 12 1 MG/ML 05/13/2019 eCW3 ([facility] Injectable Solution 12:00:00 AM [facility]) Lisinopril 5 MG Oral Tablet 05/13/2019 eCW3 ([place] 12:00:00 AM [facility]) topiramate 25 MG Oral 03/13/2019 eCW3 ( [place] Tablet 12:00:00 AM [facility]) Acetaminophen 500 MG Oral 11/19/2018 eC W3 ([place] Tablet 12:00:00 AM [facility])
--- OUTSIDE RECORDS SUMMARY | 2020-03-03 14:27 | XMS ---
:1960 [facility] Support Name Relationship Address Phone UE, UNEMPLOYED Unavailable Unavailable Unavailable UE Unavailable Unavailable Unavailable MARLA HOYT PARTNER [address], [place] [address] MARLA HOYT Other [address] [place] [address] liana denys Unavailable Unavailable Unavailable Re-disclosure Warning [...] is protected by Article 27-F of the [facility] Public Health law. If you continue you may haveaccess to information: Regarding HIV / AIDS; Provided by facilities licensed or operated by the [facility] Office of Mental Health; or Provided by the [facility] Office for People With Developmental Disabilities. If such information is present, then the following [facility] mandated warning applies: This information has been [...] law may result in a fine or skilled nursing sentence or both. A general authorization for the release of medical or other information is NOT sufficient authorization for further disclosure. Encounters Encounter Providers Location Date Indications Data Source(s ) Outpatient [facility] 02/25/2019 eCW3 ([facility] A28 12:00:00 AM Health Care) EDT - 02/25/2019 12:00:00 AM EDT Outpatient [facility] 01/28/2019 eCW3 ([facility] A28 12:00:00 AM Health Care) EDT - 01/28/2019 12:00:00 AM EDT Medications Medication Brand Start Product Dose Route Administrative Pharmacy [facility] Indications Reaction Description Data Name Date Form [...] 00 AM on_at Health EDT _bedt Care) dneisse} Clotrimazol Clotri .0 active Clotrim azole eCW3 [...] Diphenhydra Diphen 2.0 active Diphenh ydrAM eCW3 [facility] 2018 {caps INE HCl 25 ([place]ud[place] n [...] Diphenhydra Diphen 2.0 active Diphenh ydrAM eCW3 [facility] 2018 {caps INE HCl 25 ([place] [facility] Hydrochlori INE 12:00: ule_a MG [place] de 25 MG HCl 25 00 AM t_bed Health Oral MG EST time_ Care) Capsule as_ne DiphenhydrA eded} MINE HCl 25 MG Diphenhydra Diphen 2.0 active Diphenh ydrAM eCW3 [facility] 2018 {caps INE HCl 25 (Hudso n [...] Diphenhydra Diphen 2.0 active Diphenh ydrAM eCW3 [facility] 2018 {caps INE HCl 25 (Hudso n [...] Oral 12:00: ule_a [place] Capsule 00 AM [facility] Health [Colace] EDT ded} Care) Colace 100 [...] to Lorenz Inf ormation type lorenz -BEACON [id number] SP [id number] [facility]ARE [id number] SP [id number] [facility] [id number] [facility] Problems, Conditions, and Diagnoses Code Display [...] Problem 11/02/2019 eCW3 ([place] 12:00:00 AM [facility] EDT Care) J30.2 Seasonal allergy Seasonal allergies Problem 10/14/2019 eCW3 ([place] 12:00:00 AM [facility] EDT Care) J30.2 Seasonal allergy Seasonal allergies Problem 10/14/2019 eCW3 ([place] 12:00:00 AM [facility] EDT Care) R53.82 Chronic fatigue Chronic fatigue [...] Problem 02/25/2019 eCW3 ([place] 12:00:00 AM [facility] EDT Care) R58 Ecchymosis Ecchymosis Problem 02/25/2019 eCW3 ([place] 12:00:00 AM [place] [facility] EDT Care) K59.01 Slow transit Slow transit Problem 01/07/2019 eCW3 ([facility] const[facility] 12:00:00 AM [facility] EDT Care) K59.01 Slow transit Slow transit Problem 01/07/2019 eCW3 ([facility] const[facility] constipation 12:00:00 AM [facility] EDT Care) K59.01 Slow transit Slow transit Problem 01/07/2019 eCW3 ([facility] on constipation constipation 12:00:00 AM [facility] EDT [facility]) Results ID Date Data Source [id number] 02/27/2020 03:40:00 PM EDT [facility] Name Value Range Interpretation Description Data Sup porting Code Source(s) Document(s ) SARS [facility] coronavirus 2 RNA This lab was ordered by [facility] Jasmeet Rodriguez and reported by [facility]. Procedure Social History Code Duration Value Status Description Data Source(s ) Smoking 12/23/2019 12:00:00 Former Smoker completed Former Smoker eCW3 ([facility]) Smoking 12/23/2019 12:00:00 Former Smoker completed Former Smoker eCW3 ([facility]) Smoking 10/14/2019 12:00:00 Former Smoker completed Former Smoker eCW3 ([facility]) Smoking 10/14/2019 12:00:00 Former Smoker completed Former Smoker eCW3 ([facility]) Vital Signs ID Date Data Source UNK Name Value Range Interpretation Code Description Data Source(s) Diastolic blood 68 mm[Hg] 68 mm[Hg] eCW3 ([facility]) Systolic blood 101 mm[Hg] 101 mm[Hg] eCW3 ([facility]) Body temperature 98.3 [degF] 98.3 [degF] eCW3 ( [facility]) Heart rate 16 /min 16 /min eCW3 ([facility]) Body height [in_i] eCW3 ([facility]) Diastolic blood 75 mm[Hg] 75 mm[Hg] eCW3 ([facility]) Systolic blood 126 mm[Hg] 126 mm[Hg] eCW3 ([facility]) Body temperature 98.3 [degF] 98.3 [degF] eCW3 ( [facility]) Heart rate 16 /min 16 /min eCW3 ([facility]) Body mass index 29.62 kg/m2 29.62 kg/m2 eCW3 ([facility] (BMI) [Ratio] [facility]) Body weight 178 [lb_av] 178 [lb_av] eCW3 ([facility]) Body height [in_i] eCW3 ([facility]) Patient Treatment Plan of Care Planned Activity Planned Date Details Description Data Source (s) Biktarvy 50-200-25 MG 01/09/2020 eCW3 ( [facility] 12:00:00 AM [facility]) Indomethacin 25 MG Oral 01/01/2020 eCW3 ([facility] Capsule 12:00:00 AM [facility]) Syringe (Disposable) 1 ML 10/14/2019 eC W3 ([facility] 12:00:00 AM [facility]) Syringe (Disposable) 1 ML 10/14/2019 eC W3 ([facility] 12:00:00 AM [facility]) Biktarvy 50-200-25 MG 10/11/2019 eCW3 ( [facility] 12:00:00 AM [facility]) Clotrimazole 10 MG/ML 09/05/2019 eCW3 ( [facility] Topical Solution 12:00:00 AM [facility]) Ketoconazole 20 MG/ML 09/05/2019 eCW3 ( [facility] Topical Cream 12:00:00 AM [facility] ) Clotrimazole - 09/05/2019 eCW3 ([facility] 12:00:00 AM [facility]) Clotrimazole 10 MG/ML 09/05/2019 eCW3 ( [facility] Topical Solution 12:00:00 AM [facility] are) Ketoconazole 20 MG/ML 09/05/2019 eCW3 ( [facility] Topical Cream 12:00:00 AM [facility] ) Clotrimazole - 09/05/2019 eCW3 ([facility] 12:00:00 AM [facility]) Biktarvy 50-200-25 MG 08/02/2019 eCW3 ( [facility] 12:00:00 AM [facility]) Biktarvy 50-200-25 MG 08/02/2019 eCW3 ( [facility] 12:00:00 AM [facility]) Lisinopril 5 MG Oral Tablet 05/13/2019 eCW3 ([facility] 12:00:00 AM [facility]) Lisinopril 5 MG Oral Tablet 05/13/2019 eCW3 ([place] 12:00:00 AM [facility]) Diphenhydramine 05/13/2019 eCW3 ([place] Hydrochloride 25 MG Oral 12:00:00 AM [facility]) Capsule clopidogrel 75 MG Oral 05/13/2019 eCW3 ([place] Tablet [Plavix] 12:00:[address] [facility]) Vitamin B 12 1 MG/ML 05/13/2019 eCW3 ([place] [facility] Injectable Solution 12:00:00 AM [facility]) Lisinopril 5 MG Oral Tablet 05/13/2019 eCW3 ([place] 12:00:00 AM [facility]) Diphenhydramine 05/13/2019 eCW3 ([place] Hydrochloride 25 MG Oral 12:00:00 AM [facility]) Capsule clopidogrel 75 MG Oral 05/13/2019 eCW3 ([place] Tablet [Plavix] 12:00:[address] [facility]) Vitamin B 12 1 MG/ML 05/13/2019 eCW3 ([place] [facility] Injectable Solution 12:00:00 AM [facility]) Lisinopril 5 MG Oral Tablet 05/13/2019 eCW3 ([place] 12:00:00 AM [facility]) topiramate 25 MG Oral 03/13/2019 eCW3 ( [place] Tablet 12:00:00 AM [facility]) Acetaminophen 500 MG Oral 11/19/2018 eC W3 ([place] Tablet 12:00:00 AM [facility])
[2020-03-03] MEDS ORDERED: MAG HYDROX/AL HYDROX/SIMETH 30 ML UNIT-DOSE CUP PO PRN (19:43)
[2020-03-03] MEDS ORDERED: MAGNESIUM CITRATE 300 ML BOTTLE PO PRN ×2 (19:43→19:51)
[2020-03-03] MEDS ORDERED: P-EPHED 60MG/TRIPROLIDI 2.5MG TABLET PO PRN ×2 (19:43→19:51)
[2020-03-03] MEDS ORDERED: LOPERAMIDE HCL 2 MG CAPSULE PO PRN ×2 (19:43→19:51)
[2020-03-03] MEDS ORDERED: guaiFENesin 200 MG/10 ML 10 ML UNIT-DOSE CUPS PO PRN ×2 (19:43→19:51)
[2020-03-03] MEDS ORDERED: NICOTINE POLACRILEX 2 MG GUM BUC PRN ×2 (19:43→19:51)
[2020-03-03] MEDS ORDERED: MAGNESIUM HYDROX 2400MG/30ML ORAL SUSPENSION 30 ML CUP PO PRN ×2 (19:43→19:51)
[2020-03-03] MEDS ORDERED: ACETAMINOPHEN 325 MG TABLET (FP) PO PRN ×2 (19:43→19:51)
[2020-03-03] MEDS ORDERED: MENTHOL/PHENOL 1 EACH UD MM PRN ×2 (19:43→19:51)
[2020-03-03] MEDS ORDERED: ALBUTEROL SO4 HFA INHALER IH PRN (19:46)
[2020-03-03] MEDS ORDERED: CLOPIDOGREL BISULFATE 75 MG TABLET (FP) PO SCH (20:00)
[2020-03-03] MEDS: ATORVASTATIN CA 10 MG TABLET (FP) PO SCH (21:09)
[2020-03-03] MEDS: THIAMINE HCL 100 MG TABLET (FP) PO SCH (21:09)
[2020-03-03] MEDS ORDERED: ATORVASTATIN CA 10 MG TABLET (FP) PO SCH (22:00)
[2020-03-03] MEDS ORDERED: MELATONIN 5 MG TABLETS PO SCH ×2 (22:00)
[2020-03-03] MEDS ORDERED: hydrOXYzine PAMOATE 25 MG CAPSULE (FP) PO SCH (22:00)
[2020-03-03] MEDS ORDERED: THIAMINE HCL 100 MG TABLET (FP) PO SCH (22:00)
[2020-03-03] MEDS ORDERED: ACETAMINOPHEN 325 MG TABLET (FP) PO ONE (22:58)
[2020-03-03] MEDS ORDERED: PT OWN MED DRAWER 7, Y5N ONE (23:06)
[2020-03-03] MEDS: ALBUTEROL SO4 HFA INHALER IH PRN (23:15)
[2020-03-03] MEDS ORDERED: MELATONIN 5 MG TABLETS PO ONE (23:55)
[2020-03-03] MEDS ORDERED: METHOCARBAMOL 500 MG TABLET PO PRN (23:57)
[2020-03-04] MEDS ORDERED: ACETAMINOPHEN 325 MG TABLET (FP) PO PRN (04:00)
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
[2020-03-04] MEDS ORDERED: PT OWN MED DRAWER 7, Y5N ONE (09:26)
[2020-03-04] MEDS ORDERED: PRENATAL VITAMINS W/ FOLIC ACID TABLET (FP) PO SCH (10:00)
[2020-03-04] MEDS ORDERED: NICOTINE 14 MG/24 HOURS TOPICAL PATCH TD SCH (10:00)
[2020-03-04] MEDS ORDERED: LISINOPRIL 5 MG TABLET PO SCH (10:00)
--- NOTE | 2020-03-04 10:06 | PN ---
[facility] Progress Note Note: Notified by nursing staff patient had witnessed fall in day room. Fall witnessed by counselor Lizbeth De. As per staff, patient became dizzy when arising from chair and assisted to sitting position on floor by counselor. Patient and staff deny patient hitting head on floor or furniture and did not lose consciousness. Patient states " I felt dizzy and have hx of migraines. I need something for my headaches". Patient also told provider she has been having discomfort to pelvic area with urinary discomfort and hesitancy. Vital Signs Temperature 97.4 F L 03/04/20 06:35 Pulse Rate 69 03/04/20 10:00 Respiratory Rate 20 03/04/20 10:00 Blood Pressure 137/97 03/04/20 10:00 O2 Sat by Pulse Oximetry (%) 97 03/04/20 10:00 PE alert and oriented x 3 skin warm and dry head normocephalic, no lumps or bruises neuro cranial nerves 1-X11 grossly intact gi nt, nd + mild bilateral pelvic tenderness ext no visible swelling, bruises, redness noted A/P S/P Fall Urinary hesitancy/Pelvic discomfort migraines Fall protocol #2 UA and CS ordered encourage oral fluids start Topamax 25mg daily monitor clinically
[2020-03-04] MEDS: PRENATAL VITAMINS W/ FOLIC ACID TABLET (FP) PO SCH (11:05)
[2020-03-04] MEDS: NICOTINE 14 MG/24 HOURS TOPICAL PATCH TD SCH (11:06)
[2020-03-04] MEDS: CLOPIDOGREL BISULFATE 75 MG TABLET (FP) PO SCH (11:07)
[2020-03-04] MEDS: LISINOPRIL 5 MG TABLET PO SCH (11:07)
[2020-03-04] MEDS: TOPIRAMATE 25 MG TABLET PO SCH (11:08)
[2020-03-04] MEDS: hydrOXYzine PAMOATE 50 MG CAPSULE (FP) PO PRN ×2 (11:19→21:39)
[2020-03-04] MEDS: ALBUTEROL SO4 HFA INHALER IH PRN ×2 (11:34→21:41)
[2020-03-04] MEDS: BICTEGRAV/EMTRICIT/TENOFOV (BIKTARVY) 50-200-25 MG TABLET PO SCH (14:15)
[2020-03-04] MEDS: MAG HYDROX/AL HYDROX/SIMETH 30 ML UNIT-DOSE CUP PO PRN (15:14)
[2020-03-04 17:12] LABS: URINE APPEARANCE CLEAR; URINE BILIRUBIN NEGATIVE (NEGATIVE); URINE COLOR YELLOW; URINE GLUCOSE (UA) NEGATIVE (NEGATIVE); URINE KETONE NEGATIVE (NEGATIVE); URINE LEUK ESTERASE NEGATIVE (NEGATIVE); URINE NITRITE NEGATIVE (NEGATIVE); URINE PROTEIN NEGATIVE (NEGATIVE); URINE UROBILINOGEN 0.2 mg/dL (0.2-1.0)
[2020-03-04] MEDS: ATORVASTATIN CA 10 MG TABLET (FP) PO SCH (21:39)
[2020-03-04] MEDS: THIAMINE HCL 100 MG TABLET (FP) PO SCH (21:39)
[2020-03-04] MEDS ORDERED: SUVOREXANT 10 MG TABLET PO PRN (22:00)
[2020-03-05] MEDS ORDERED: PT OWN MED DRAWER 7, Y5N ONE ×3 (06:29→08:08)
[2020-03-05] MEDS: BICTEGRAV/EMTRICIT/TENOFOV (BIKTARVY) 50-200-25 MG TABLET PO SCH (07:10)
[2020-03-05] MEDS: PRENATAL VITAMINS W/ FOLIC ACID TABLET (FP) PO SCH (09:09)
[2020-03-05] MEDS: CLOPIDOGREL BISULFATE 75 MG TABLET (FP) PO SCH (09:09)
[2020-03-05] MEDS: NICOTINE 14 MG/24 HOURS TOPICAL PATCH TD SCH (09:09)
[2020-03-05] MEDS: LISINOPRIL 5 MG TABLET PO SCH (09:10)
[2020-03-05 10:29] VITALS: BP 122/86; PULSE 94; TEMP 97.3
[2020-03-05] MEDS: TOPIRAMATE 25 MG TABLET PO SCH (11:00)
[2020-03-05] MEDS: MAG HYDROX/AL HYDROX/SIMETH 30 ML UNIT-DOSE CUP PO PRN (11:31)
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
== END 2020-03-05 16:20 | disposition home or self-care (01) | DRG 772 ==
LOC: YASAS 14:22 → Y3E 14:23
PROVIDERS: ADMIT Allergy & Immunology; ATTEND Allergy & Immunology
PROC: HZ42ZZZ Group Counseling for Substance Abuse Treatment, Cognitive-Behavioral (ICD-10-PCS; principal; 2020-03-03)
DX: F10.20 Alcohol dependence, uncomplicated (principal); F14.20 Cocaine dependence, uncomplicated; F17.210 Nicotine dependence, cigarettes, uncomplicated; F10.280 Alcohol dependence with alcohol-induced anxiety disorder; F10.282 Alcohol dependence with alcohol-induced sleep disorder; F32.9 Major depressive disorder, single episode, unspecified; Z21 Asymptomatic human immunodeficiency virus [HIV] infection status; J44.9 Chronic obstructive pulmonary disease, unspecified; M19.90 Unspecified osteoarthritis, unspecified site; G43.909 Migraine, unspecified, not intractable, without status migrainosus; A53.0 Latent syphilis, unspecified as early or late; Z86.718 Personal history of other venous thrombosis and embolism; Z91.410 Personal history of adult physical and sexual abuse; Z79.02 Long term (current) use of antithrombotics/antiplatelets
CPT/HCPCS: 81003; 87086